=== PATIENT | female | born 1980 | race Caucasian/White ===

== ENCOUNTER → 2017-09-29 18:11 | Outpatient (CLI) | payer BC, SELFPAY ==
[2017-10-01 14:19] LABS: H. pylori Breath Test Positive (Negative)
== END ==
PROVIDERS: PCP Nurse Practitioner Family; Visit Provider Nurse Practitioner Family
DX: R10.9 Unspecified abdominal pain (principal)
CPT/HCPCS: 83013

== ENCOUNTER → 2017-11-10 18:50 | Outpatient (REF) | payer BC, SELFPAY ==
[2017-11-10 19:46] LABS: Basophils % 0.4 % (0.1-2.0); Eosinophils # 0.2 K/mm3 (0.0-0.4); Eosinophils % 2.2 % (0.1-12.0); Hematocrit 40.1 % (37.0-47.0); Lymphocytes # 1.9 K/mm3 (0.7-4.5); Lymphocytes % 24.6 K/mm3 (10-50); Mean Corpuscular HGB Conc 32.5 g/dL (31.8-35.4); Mean Corpuscular Hemoglobin 32.2 pg (27.0-31.2); Monocytes # 0.3 K/mm3 (0.1-1.0); Monocytes % 4.5 % (1.7-9.3); Neutrophils # 5.2 K/mm3 (1.8-7.8); Neutrophils % 68.3 % (37.0-80.0); Platelet Count 225 K/mm3 (142-424); Red Blood Count 4.05 M/mm3 (4.20-5.40); Red Cell Distribution Width 12.5 % (11.5-17.5); White Blood Count 7.7 K/mm3 (4.8-10.8)
[2017-11-10 22:04] LABS: Alanine Aminotransferase 32 U/L (12-78); Albumin Level 4.1 gm/dL (3.4-5.0); Albumin/Globulin Ratio 1.4 (1.1-1.8); Alkaline Phosphatase 56 U/L (46-116); Aspartate Amino Transferase 16 U/L (15-37); Bilirubin,Total 0.2 mg/dL (0.2-1.0); Blood Urea Nitrogen 11 mg/dL (7-18); Calcium 8.9 mg/dL (8.5-10.1); Carbon Dioxide 28 mmol/L (21.0-32.0); Chloride 104 mmol/L (98-107); Creatinine,Serum 0.93 mg/dL (0.55-1.02); Estimated Glomerular Filt Rate 67 ml/min (>60); Free Thyroxine Index 2.6 ug/dL (5.93-13.13); GFR (African American) 82 ML/MIN (>60); Globulin 2.9 gm/dl (1.3-3.2); Glucose 87 mg/dL (74-106); Sodium 142 mmol/L (136-145); T4 (Thyroxine) 7.2 ug/dl (4.7-13.3); Thyroid Stimulating Hormone 2.18 uIU/ml (0.358-3.740); Triiodothryronine (T3) Uptake 36 % (31-39)
== END ==
LOC: LAB 18:50
PROVIDERS: Visit Provider Nurse Practitioner Family
DX: E07.9 Disorder of thyroid, unspecified (principal); R10.13 Epigastric pain
CPT/HCPCS: 80053; 84436; 84443; 84479; 85025

== ENCOUNTER → 2017-11-22 09:53 | Outpatient (POV) | payer BC, SELFPAY | PROVIDERS: Visit Provider Nurse Practitioner Acute Care | DX: Z00.00 Encounter for general adult medical examination without abnormal findings (principal) ==

== ENCOUNTER → 2018-12-25 12:20 | Outpatient (CLI) | payer MEDICAID, SELFPAY ==
[2018-12-25 13:17] LABS: Basophils % 0.3 % (0.1-2.0); Eosinophils # 0.1 K/mm3 (0.0-0.4); Eosinophils % 1.4 % (0.1-12.0); Hematocrit 38.1 % (37.0-47.0); Lymphocytes # 1.7 K/mm3 (0.7-4.5); Lymphocytes % 17.7 % (10-50); Mean Corpuscular HGB Conc 34.2 g/dL (31.8-35.4); Mean Corpuscular Hemoglobin 32.4 pg (27.0-31.2); Mean Corpuscular Volume 94.7 fl (81-99); Mean Platelet Volume 7.8 fl (7.4-10.4); Monocytes # 0.5 K/mm3 (0.1-1.0); Monocytes % 5.4 % (1.7-9.3); Neutrophils # 7.1 K/mm3 (1.8-7.8); Neutrophils % 75.3 % (37.0-80.0); Platelet Count 229 K/mm3 (142-424); Red Blood Count 4.03 M/mm3 (4.20-5.40); Red Cell Distribution Width 12.7 % (11.5-17.5); White Blood Count 9.4 K/mm3 (4.8-10.8)
[2018-12-25 14:25] LABS: Alanine Aminotransferase 31 U/L (12-78); Albumin Level 3.7 gm/dL (3.4-5.0); Albumin/Globulin Ratio 1.2 (1.1-1.8); Alkaline Phosphatase 63 U/L (46-116); Aspartate Amino Transferase 11 U/L (15-37); Bilirubin,Total 0.8 mg/dL (0.2-1.0); Blood Urea Nitrogen 9 mg/dL (7-18); Calcium 8.6 mg/dL (8.5-10.1); Carbon Dioxide 26 mmol/L (21.0-32.0); Chloride 105 mmol/L (98-107); Chol/HDL Ratio 5.3 (1-3.5); Cholesterol 205 mg/dL (140-200); Creatinine,Serum 0.91 mg/dL (0.55-1.02); Estimated Glomerular Filt Rate 69 ml/min (>60); GFR (African American) 83 ML/MIN (>60); Globulin 3.1 gm/dl (1.3-3.2); Glucose 94 mg/dL (74-106); HDL Cholesterol 39 mg/dL (29-89); LDL Cholesterol 147 mg/dL (0-130); Sodium 139 mmol/L (136-145); T4 (Thyroxine) 8.8 ug/dl (4.7-13.3); Thyroid Stimulating Hormone 0.76 uIU/ml (0.358-3.740); Total Protein,Serum 6.8 gm/dL (6.4-8.2); Triglycerides 97 mg/dL (30-200); VLDL Cholesterol 19 mg/dL (0-40)
[2018-12-26 15:03] LABS: Vitamin D 25 Hydroxy 35.3 ng/mL (30.0-100.0)
== END ==
PROVIDERS: PCP Nurse Practitioner Family; Visit Provider Nurse Practitioner Family
DX: E66.09 Other obesity due to excess calories (principal); Z68.41 Body mass index [BMI] 40.0-44.9, adult
CPT/HCPCS: 36415; 80053; 80061; 82652; 84436; 84443; 85025

== ENCOUNTER → 2019-01-26 13:45 | Outpatient (CLI) | payer MEDICAID, SELFPAY ==
--- NOTE | 2019-01-26 13:48 | XR_ITS ---
XR wrist LT min 3V HISTORY pain ITS.REASON: 3 views ORDERING PHYSICIAN: Heena Partida MD PATIENT AGE: 38 years Comparison: None FINDINGS: No fracture or dislocation. No lytic or blastic change. There is normal mineralization.. The joint spaces are well-preserved. No significant degenerative/arthritic changes. No erosive changes evident.. IMPRESSION: Negative wrist
--- NOTE | 2019-01-26 13:48 | XR_ITS ---
XR wrist RT min 3V HISTORY right wrist pain ITS.REASON: 3 views ORDERING PHYSICIAN: Heena Partida MD PATIENT AGE: 38 years Comparison: None FINDINGS: No fracture or dislocation. No lytic or blastic change. There is normal mineralization.. The joint spaces are well-preserved. No significant degenerative/arthritic changes. No erosive changes evident.. IMPRESSION: Negative wrist
== END ==
PROVIDERS: PCP Emergency Medicine; Visit Provider Orthopaedic Surgery
DX: M25.531 Pain in right wrist (principal); M25.532 Pain in left wrist
CPT/HCPCS: 73110

== ENCOUNTER 2019-01-26 14:58 | Outpatient (RCR) | payer MEDICAID, SELFPAY | END 2019-01-26 15:00 | disposition home or self-care (01) | LOC: OT 14:58 | PROVIDERS: Visit Provider Orthopaedic Surgery | DX: G56.03 Carpal tunnel syndrome, bilateral upper limbs (principal) ==

== ENCOUNTER 2019-12-09 15:51 | Emergency (ER) | payer MEDICAID, SELFPAY ==
[2019-12-09 16:06] VITALS: BP 127/55; PULSE 54; RESP 20; TEMP 36.7; O2SAT 98; BMI 42.5
--- NOTE | 2019-12-09 16:26 | HMH.EDUTC ---
[facility] Disposition Clinical Impression: Cellulitis Qualifiers: Site of cellulitis: trunk Site of cellulitis of trunk: abdominal wall Qualified Code(s): L03.311 - Cellulitis of abdominal wall Disposition: Home, Self-Care Condition on Discharge: Good Instructions: Cellulitis Additional Instructions: Apply warm wet compresses to the affected sites three or four times per day for 15 minutes as tolerated. Watch the site for worsening redness or swelling. Take the antibiotics as directed. Follow up with your regular doctor. GO TO THE ER FOR ANY WORSENING SYMPTOMS OR CONCERNS Prescriptions: Sulfamethoxazole/Trimethoprim [Bactrim DS tablet] 1 each PO BID 10 Days #20 tab Transmission Status: Received by [email or web address] [id number] cephALEXin [Keflex 500mg Cap] 500 mg PO Q6H 10 Days #40 cap Transmission Status: Received by [email or web address] # [id number] Referrals: Jerry Mcghee MD [Primary Care Provider] - Time of Disposition: 16:36 Medical Decision Making - Medical Records Medical records reviewed: No: I reviewed the patient's medical records. - Ian Inquiry Pt receiving controlled substance: No Vital Signs: 12/09/19 16:06 12/09/19 16:31 Temperature 98.1 F 98.1 F Temperature Source Oral Pulse Rate 54 L Pulse Rate [Right Brachial] 54 L Respiratory Rate 20 20 Blood Pressure 127/55 L Blood Pressure [Right Arm] 127/55 L Blood Pressure Mean [Right Arm] 79 Blood Pressure Source [Right Arm] Automatic Cuff Blood Pressure Position [Right Arm] Sitting 02 Sat by Pulse Oximetry 98 Oxygen Delivery Method Room Air Orders (Tests/Meds): ED MEDICATIONS Discontinued Medications Generic Name Dose Route Start Last Admin Trade Name Freq PRN Reason Stop Dose Admin Ceftriaxone Sodium 1 gm 12/09/19 16:12 12/09/19 16:24 Rocephin 1gm Vial IM 12/09/19 16:13 1 gm ONCE ONE Administration Protocol Lidocaine HCl 0 ml 12/09/19 16:12 12/09/19 16:24 Lidocaine 1% 10ml Mdv IM 12/09/19 16:13 2.1 ml ONCE ONE Administration ORDERS Category Date Time Status Wound Culture and Gram Stain Stat Micro 12/09/19 16:10 Results [facility] HPI - General Stated complaint: possible spider bite Time Seen by Provider: 12/09/19 16:26 Mode of Arrival: Ambulatory Source of Information: Patient Limitations: No Limitations Description of Symptoms (Recalled from Triage Doc. by RN): POSSIBLE BITE TO ABDOMEN; REDNESS, WARMTH AND DRAINAGE NOTED HEENT Symptoms (Recalled from RN notes): No Resp Symptoms (Recalled from RN notes): No Skin Symptoms (Recalled from RN notes): Yes MS Symptoms (Recalled from RN notes): No Functional Status (Recalled from RN notes): WNL - History of Present Illness Provider Complaint: She c/o having a sore on her lower abdomen that is draining. She states that she first noticed it 2 days ago. Since then it has been getting more red around it and more swollen. She denies any fever or chills. - Related Data Previous Rx's Medication Instructions Recorded levothyroxine 88 mcg tablet 88 mcg PO QDAY #30 tab 06/15/19 Sulfamethoxazole/Trimethoprim 1 each PO BID 10 Days #20 tab 12/09/19 [Bactrim DS tablet] cephALEXin [Keflex 500mg Cap] 500 mg PO Q6H 10 Days #40 cap 12/09/19 Allergies Allergy/AdvReac Type Severity Reaction Status Date / Time phenazopyridine Allergy Unknown UNKNOWN Verified 05/25/19 13:02 [From Pyridium] - Worker's Comp Is this a Worker's Comp case?: No [facility] History - Hepatitis A Screen Drug use history?: No High risk sexual behaviors?: No History of sexually transmitted infection?: No Currently employed?: No Childcare worker?: No Do you have indoor plumbing?: Yes Do you have electricity?: Yes Attestation statement:: This patient has been screened for Hepatitis A risk factors. I have reviewed the patient's past medical history: Yes Medical History: Reports:: Gastroesophageal Reflux Disease(GERD) Denies:: Cancer, Diabetes Mellitus
[2019-12-09 16:31] VITALS: BP 127/55; PULSE 54; RESP 20; TEMP 36.7; O2SAT 98
--- NOTE | 2019-12-12 09:51 | PC.NURSE ---
LAB CALLED WITH CRITICAL LAB RESULT FROM ABDOMINAL SWAB OF DRAINAGE. POSITIVE FOR MRSA. PATIENT ON APPROPRIATE MEDICATION PER DA ORDAZ APRN.
== END 2019-12-09 16:35 | disposition home or self-care (01) ==
PROVIDERS: Emergency Provider Nurse Practitioner Family; PCP Emergency Medicine
DX: L03.311 Cellulitis of abdominal wall (principal); K21.9 Gastro-esophageal reflux disease without esophagitis; E03.9 Hypothyroidism, unspecified; F17.210 Nicotine dependence, cigarettes, uncomplicated; Z79.899 Other long term (current) drug therapy
CPT/HCPCS: 87070; 87186; 87205; 96372; 99202

== ENCOUNTER → 2020-05-17 14:20 | Outpatient (CLI) | payer MEDICAID, SELFPAY ==
--- NOTE | 2020-05-17 14:30 | XR_ITS ---
PROCEDURE: XR KNEE LT 4V CLINICAL INDICATION: knee pain COMPARISON: CR [id number] KNEE-4 OR 5 VIEWS-LT from 10/28/2016 CR [id number] KNEE-4 OR 5 VIEWS-RT from 10/28/2016 FINDINGS: There are tricompartmental osteoarthritic changes which are mild to moderate in nature. No acute fracture or dislocation. No lytic or blastic change. There is a small suprapatellar effusion suspected. There is some cortical thickening/hyperostosis involving the articular surface of the lateral femoral condyle. IMPRESSION: Mild to moderate osteoarthritic changes with small suprapatellar effusion Dictated by: Javier Mayer MD 05/17/2020 15:20 Javier Mayer MD in [place] 05/17/2020 15:20
--- NOTE | 2020-05-17 14:30 | XR_ITS ---
PROCEDURE: XR KNEE RT 4V CLINICAL INDICATION: knee pain COMPARISON: CR [id number] KNEE-4 OR 5 VIEWS-LT from 10/28/2016 CR [id number] KNEE-4 OR 5 VIEWS-RT from 10/28/2016 FINDINGS: There are moderate osteoarthritic changes of the lateral compartment with mild osteoarthritis of the medial compartment and moderate osteoarthritis of the patellofemoral joint. No acute fracture or dislocation.. Osteophyte developing along the lateral femoral condyle since the previous exam Small suprapatellar effusion noted. Other findings:None. IMPRESSION: Moderate osteoarthritis of the right knee which is slightly worse Dictated by: Javier Mayer MD 05/17/2020 15:26 Javier Mayer MD in [place] 05/17/2020 15:26
== END ==
PROVIDERS: PCP Emergency Medicine; Visit Provider Orthopaedic Surgery
DX: M25.561 Pain in right knee (principal); M25.562 Pain in left knee
CPT/HCPCS: 73564

== ENCOUNTER → 2020-09-28 07:48 | Outpatient (CLI) | payer MEDICAID, SELFPAY ==
[2020-09-28 11:04] LABS: Coronavirus 19 IgG Antibody Negative (Negative); Coronavirus 19 IgM Antibody Negative (Negative)
== END ==
PROVIDERS: Visit Provider Nurse Practitioner Family
DX: Z01.812 Encounter for preprocedural laboratory examination (principal); Z20.822 Contact with and (suspected) exposure to COVID-19
CPT/HCPCS: 36415; 86328

== ENCOUNTER → 2020-09-30 19:44 | Outpatient (CLI) | payer MEDICAID, SELFPAY | PROVIDERS: PCP Emergency Medicine; Visit Provider Nurse Practitioner Family | DX: G47.33 Obstructive sleep apnea (adult) (pediatric) (principal); R40.0 Somnolence; R06.83 Snoring; E66.9 Obesity, unspecified | CPT/HCPCS: 95810 ==

== ENCOUNTER → 2021-03-14 12:41 | Outpatient (CLI) | payer MEDICAID, SELFPAY ==
--- NOTE | 2021-03-14 12:45 | MM_ITS ---
PROCEDURE INFORMATION: Exam: MG Screening 3D Mammography Exam date and time: 03/14/2021 12:45 PM Age: 40 years old Clinical indication: Screening mammogram TECHNIQUE: Imaging protocol: Screening tomosynthesis and 2D mammography including computer-aided detection (CAD) when performed. COMPARISON: No relevant prior studies available. FINDINGS: MAMMOGRAPHY: Breast composition: There are scattered areas of fibroglandular density. Mass: None. Architectural distortion: No new or suspicious architectural distortion. Calcifications: See Implants finding. Asymmetric density: No new or suspicious asymmetric density is present Skin thickening: None. Axillary adenopathy: None. Implants: Retroglandular augmentation implants are present. There are dense capsular calcifications. IMPRESSION: No mammographic evidence of malignancy. Recommend annual screening mammography unless otherwise clinically indicated. ASSESSMENT: BI-RADS category 2: Benign
== END ==
PROVIDERS: PCP Emergency Medicine; Visit Provider Obstetrics & Gynecology
DX: Z12.31 Encounter for screening mammogram for malignant neoplasm of breast (principal)
CPT/HCPCS: 77063; 77067

== ENCOUNTER → 2021-03-19 11:45 | Outpatient (CLI) | payer MEDICAID, SELFPAY | PROVIDERS: PCP Emergency Medicine; Visit Provider Obstetrics & Gynecology | DX: Z12.31 Encounter for screening mammogram for malignant neoplasm of breast (principal) ==

== ENCOUNTER 2021-06-10 10:28 | Emergency (ER) | payer BC, MEDICAID, SELFPAY ==
[2021-06-10 11:57] VITALS: BP 114/46; PULSE 71; RESP 18; TEMP 37; O2SAT 98; BMI 36.6
--- NOTE | 2021-06-10 12:11 | HMH.EDUTC ---
[facility] [place] Disposition Clinical Impression: Muscle spasm Disposition: Home, Self-Care Condition on Discharge: Good Instructions: Cyclobenzaprine, DI for Muscle Spasm Additional Instructions: *Ibuprofen randolph 6 hours with meal as needed for pain/inflammation *Not additional anti-inflammatory like motrin, aleve, advil with the above amount of ibuprofen. You can still take Tylenol every 4 hours as needed if you need something else for pain *Ice 20 minutes every 2 hours for the first 48 hours after the initial injury followed by moist heat every 20 minutes 3-4 times a day to affected area *Muscle relaxer every 8 hours as needed for muscle spasms but remember, it WILL cause drowsiness You cannot take it and drive, operate machinery or care for small children. *Keep this area active, no movement leads to more stiffness, However take it easy and avoid heavy lifting pushing or pulling *Follow up with you family doctor if no improvement for further treatment Over the counter Muscle Rubs may help with pain and discomfort Prescriptions: Cyclobenzaprine HCl [Flexeril 10mg tablet] 10 mg PO TID PRN #15 tab PRN Reason: Muscle Spasm Transmission Status: Received by [id number] Referrals: Jerry Mcghee MD [Primary Care Provider] - As needed Time of Disposition: 12:24 Medical Decision Making - Ian Inquiry Pt receiving controlled substance: No Ian was queried for this patient: No Vital Signs: 06/10/21 11:57 06/10/21 12:26 Temperature 98.6 F 98.6 F Temperature Source Oral Pulse Rate 71 Pulse Rate [Right Radial] 71 Respiratory Rate 18 18 Blood Pressure 114/46 L Blood Pressure [Right Arm] 114/46 L Blood Pressure Mean [Right Arm] 68 Blood Pressure Source [Right Arm] Automatic Cuff Blood Pressure Position [Right Arm] Sitting 02 Sat by Pulse Oximetry 98 Orders (Tests/Meds): ED MEDICATIONS Discontinued Medications Generic Name Dose Route Start Last Admin Trade Name Freq PRN Reason Stop Dose Admin Methylprednisolone Sodium Succinate 125 mg 06/10/21 12:19 06/10/21 12:20 Methylprednisolone Sod Succ 125mg Vial IM 06/10/21 12:20 125 mg ONCE ONE Administration [facility] [place] HPI - General Stated complaint: possible pulled muscle in shoulder Time Seen by Provider: 06/10/21 12:11 Mode of Arrival: Ambulatory Source of Information: Patient Limitations: No Limitations Description of Symptoms (Recalled from Triage Doc. by RN): Pt c/o pain in the right shoulder, left side and left back with movement x2 days. No known injury HEENT Symptoms (Recalled from RN notes): No Resp Symptoms (Recalled from RN notes): No Skin Symptoms (Recalled from RN notes): No MS Symptoms (Recalled from RN notes): Yes (pain in rt shoulder, lt side and lt back) Functional Status (Recalled from RN notes): n/a - History of Present Illness Provider Complaint: Patient states that she has been having muscle spasm like pain in her right shoulder area and left back with movement States States that she is unsure if she may have slept wrong or something but hurts when she moves her shoulder and feels tight - Related Data Previous Rx's Medication Instructions Recorded meloxicam 15 mg tablet 15 mg PO DAILY #30 tab 03/25/21 methylprednisolone 4 mg tablets in See Rx Instructions PO PER PKG DIR 03/25/21 a dose pack #21 tab Cyclobenzaprine HCl [Flexeril 10mg 10 mg PO TID PRN #15 tab 06/10/21 tablet] Allergies Allergy/AdvReac Type Severity Reaction Status Date / Time phenazopyridine Allergy Unknown UNKNOWN Verified 03/25/21 08:33 [From Pyridium] - Worker's Comp Is this a Worker's Comp case?: No [facility] History - Hepatitis A Screen Drug use history?: No High risk sexual behaviors?: No History of sexually transmitted infection?: No Currently employed?: No Childcare worker?: No Do you have indoor plumbing?: Yes Do you have electricity?: Yes Attestation statement:: This patient has been screened for Hepatitis A ris
[2021-06-10 12:26] VITALS: BP 114/46; PULSE 71; RESP 18; TEMP 37; O2SAT 98
== END 2021-06-10 12:26 | disposition home or self-care (01) ==
PROVIDERS: Emergency Provider Nurse Practitioner; PCP Emergency Medicine
DX: M62.838 Other muscle spasm (principal)
CPT/HCPCS: 99202; G0463

== ENCOUNTER 2021-08-14 18:27 | Emergency (ER) | payer BC, MEDICAID, SELFPAY ==
[2021-08-14 19:07] VITALS: BP 121/61; PULSE 89; RESP 18; TEMP 38.6; O2SAT 98; BMI 31.9
--- NOTE | 2021-08-14 19:22 | HMH.EDUTC ---
[facility] [place] Disposition Clinical Impression: Abdominal pain Qualifiers: Abdominal location: unspecified location Qualified Code(s): R10.9 - Unspecified abdominal pain Disposition: Still a Patient Condition on Discharge: Good Referrals: Jerry Mcghee MD [Primary Care Provider] - Time of Disposition: 19:57 Medical Decision Making - Ian Inquiry Pt receiving controlled substance: No Ian was queried for this patient: No Vital Signs: 08/14/21 19:07 08/14/21 19:56 Temperature 101.4 F H 101.4 F H Temperature Source Oral Oral Pulse Rate [Right Radial] 89 89 Respiratory Rate 18 17 Blood Pressure [Right Arm] 121/61 127/61 Blood Pressure Mean [Right Arm] 81 83 Blood Pressure Source [Right Arm] Automatic Cuff Automatic Cuff Blood Pressure Position [Right Arm] Sitting Sitting 02 Sat by Pulse Oximetry 98 98 Oxygen Delivery Method Room Air Room Air - Lab Data Lab results reviewed: Yes: I reviewed the patient's lab results. Lab Results 08/14/21 19:24: Urine Color Dark yellow, Urine Appearance Clear, Urine pH 6.5, Ur Specific [place] 1.015, Urine Protein 1+, Urine Glucose (UA) Negative, Urine Ketones Negative, Urine Blood Negative, Urine Nitrate Negative, Urine Bilirubin Negative, Urine Urobilinogen 1, Ur Leukocyte Esterase Trace 08/14/21 19:43: Strep Scn [facility] Negative 08/14/21 19:46: Influenza Type A Ag Negative, Influenza Type B Ag Negative Orders (Tests/Meds): ED MEDICATIONS Generic Name Dose Route Start Last Admin Trade Name Freq PRN Reason Stop Dose Admin Sodium Chloride 1,000 mls @ 999 mls/hr 08/14/21 20:15 08/14/21 20:11 Sod Chlor 0.9% 1000ml Bag IV 08/14/21 21:15 999 mls/hr .Q1H1M MARIEL Administration Discontinued Medications Generic Name Dose Route Start Last Admin Trade Name Freq PRN Reason Stop Dose Admin Ketorolac Tromethamine 30 mg 08/14/21 20:04 08/14/21 20:11 Ketorolac 30mg/Ml Vial IV 08/14/21 20:05 30 mg ONCE ONE Administration Ondansetron HCl 4 mg 08/14/21 20:08 08/14/21 20:11 Ondansetron 4mg/2ml Vial IV 08/14/21 20:09 4 mg ONCE ONE Administration ORDERS Category Date Time Status CT abdomen pelvis w con Stat Cat Scan 08/14/21 20:02 Ordered Amylase Stat Lab 08/14/21 20:02 Ordered Complete Blood Count Auto Diff Stat Lab 08/14/21 20:02 Ordered Comprehensive Metabolic Panel Stat Lab 08/14/21 20:02 Ordered Lactic Acid Stat Lab 08/14/21 20:04 Ordered Lipase Stat Lab 08/14/21 20:02 Ordered Procalcitonin Stat Lab 08/14/21 20:04 Ordered Rapid PCR Covid and Flu A/B Stat Lab 08/14/21 19:22 Received Blood Culture Stat Micro 08/14/21 20:04 Ordered Strep Screen Confirmation Stat Micro 08/14/21 19:43 Received Urine Culture Stat Micro 08/14/21 19:30 Received Medical Decision Narrative: Patient state that she was seen at [facility] last night and dx with UTI since then she has continued to get worse having body aches, chills, low back pain, lower abdominal pain and fever States that this evening she was feeling worse and felt weak States that she just feels bad due to symptoms and recent dx discussed with patient and recommended transfer to the ED for further work up and evaluation and testing patient agreed to transfer Called ED spoke with Rica WHITTEN and patient was moved to room 9 [facility] [place] HPI - General Stated complaint: uti, body painHA, Ears, Dizzy Time Seen by Provider: 08/14/21 19:22 Mode of Arrival: Ambulatory Source of Information: Patient Limitations: No Limitations Description of Symptoms (Recalled from Triage Doc. by RN): Pt stated that she was seen at [facility] for a UTI, and now her body hurts all over, she cannot eat or drink, and her ears hurt. HEENT Symptoms (Recalled from RN notes): Yes Resp Symptoms (Recalled from RN notes): No Skin Symptoms (Recalled from RN notes): No MS Symptoms (Recalled from RN notes): No Functional Status (Recalled from RN notes): n/a - History of Present Illness Provider Compl
[2021-08-14 19:33] LABS: Apearance,Urine Clear (Clear); Color,Urine Dark Yellow (Yellow); PH,Urine 6.5 (5.0-8.5); Specific Gravity, Urine 1.015 (1.005-1.030)
[2021-08-14 19:34] LABS: Bilirubin,Urine Negative (Negative); Blood, Urine Negative (Negative); Glucose,Urine (UA) Negative (Negative); Ketones,Urine Negative (Negative); Protein,Urine 1+ (Negative); UTC Leukocyte Esterase,Urine Trace (Negative); UTC Nitrate,Urine Negative (Negative); Urobilinogen,Urine 1 EU/dl (0.2)
[2021-08-14 19:51] LABS: UTC Influenza A Antigen Negative (Negative); UTC Influenza B Antigen Negative (Negative)
[2021-08-14 19:52] LABS: UTC Strep Screen (Rapid) Negative (Negative)
[2021-08-14 19:56] VITALS: BP 127/61; PULSE 89; RESP 17; TEMP 38.6; O2SAT 98; BMI 31.9
[2021-08-14 19:58] LABS: Coronavirus 19, PCR Not Detected (NotDetected); Influenza A, PCR Not Detected (NotDetected); Influenza B, PCR Not Detected (NotDetected)
--- NOTE | 2021-08-14 20:02 | CT_ITS ---
PROCEDURE INFORMATION: Exam: CT Abdomen And Pelvis With Contrast Exam date and time: 08/14/2021 8:02 PM Age: 40 years old Clinical indication: Abdominal pain; Prior surgery; Surgery type: C section; Additional info: Low abd pain TECHNIQUE: Imaging protocol: Computed tomography of the abdomen and pelvis with contrast. Radiation optimization: All CT scans at this facility use at least one of these dose optimization techniques: automated exposure control; mA and/or kV adjustment per patient size (includes targeted exams where dose is matched to clinical indication); or iterative reconstruction. Contrast material: ISOVUE; Contrast volume: 75 ml; Contrast route: IV; COMPARISON: No relevant prior studies available. FINDINGS: Lungs: No mass/infiltrate at either lung base. No pleural effusion. Liver: The liver is normal in size and attenuation. No intrahepatic biliary dilitation. Gallbladder and bile ducts: Normal. No calcified stones. No ductal dilation. Gallbladder wall thickness is normal. Pancreas: Normal. No ductal dilation. Spleen: Normal. No splenomegaly. Adrenal glands: Normal. No mass. Kidneys and ureters: Mild infiltration of perinephric fat within the superior aspect of the left perinephric space. The possibility of underlying infection is not excluded. There are 2 low-attenuation regions identified within the superior aspect of the left kidney. One measures 1.5 cm in size. 2.4 cm in size. These may represent cysts. Correlation with ultrasound of the retroperitoneum with attention to the kidneys would be helpful. The right kidney is unremarkable. There is no evidence of hydronephrosis. Stomach and bowel: Unremarkable. No obstruction. No mucosal thickening. Small bowel mesentery is normal. Appendix: The appendix is poorly visualized on this examination. There is no evidence of acute inflammatory process within the right lower quadrant. Intraperitoneal space: Unremarkable. No free air. No significant fluid collection. Vasculature: Arterial atheromatous calcifications are noted. No abdominal aortic aneurysm. There are calcified phleboliths within the pelvis. Lymph nodes: Unremarkable. No enlarged lymph nodes. Urinary bladder: Unremarkable as visualized. Reproductive: An intrauterine device is in place. Otherwise unremarkable. Bones/joints: There are degenerative changes noted within the lumbar spine. There are degenerative changes within the sacroiliac joints. No acute fracture. Soft tissues: Small umbilical hernia which contains fat. IMPRESSION: 1. Subtle infiltration of fat within the superior left perinephric space. The possibility of underlying infection including pyelonephritis is considered. There are 2 low-attenuation well-circumscribed masses within the superior aspect of the left kidney, probably representing cysts, however this should be correlated with ultrasound of the retroperitoneum with attention to the kidneys. 2. An intrauterine device is in place. 3. Small umbilical hernia which contains fat.
--- NOTE | 2021-08-14 20:04 | PC.NURSE ---
Gave report to Rica LOPEZ RN.
[2021-08-14 20:36] LABS: Basophils # 0.1 K/mm3 (0-0.2); Basophils % 0.4 % (0.1-2.0); Eosinophils % 0.1 % (0.1-12.0); Hematocrit 35.2 % (37.0-47.0); Hemoglobin 12.3 g/dL (12.2-16.2); Lymphocytes # 1.5 K/mm3 (0.7-4.5); Lymphocytes % 9.2 % (10-50); Mean Corpuscular HGB Conc 34.8 g/dL (31.8-35.4); Mean Corpuscular Hemoglobin 32.7 pg (27.0-31.2); Mean Corpuscular Volume 93.9 fl (81-99); Mean Platelet Volume 8.6 fl (7.4-10.4); Monocytes # 0.8 K/mm3 (0.1-1.0); Monocytes % 5.3 % (1.7-9.3); Neutrophils # 13.5 K/mm3 (1.8-7.8); Platelet Count 206 K/mm3 (142-424); Red Blood Count 3.75 M/mm3 (4.20-5.40); Red Cell Distribution Width 12.6 % (11.5-17.5); White Blood Count 15.9 K/mm3 (4.8-10.8)
[2021-08-14 20:51] LABS: MANUAL DIFFERENTIAL MANUAL DIFFERENTIAL (MANUAL DIFF)
[2021-08-14 20:56] LABS: Alanine Aminotransferase 39 U/L (12-78); Albumin Level 3.9 g/dl (3.5-5.0); Albumin/Globulin Ratio 1.4 (1.1-1.8); Alkaline Phosphatase 75 U/L (38-126); Amylase 42 U/L (30-110); Aspartate Amino Transferase 35 U/L (14-36); Bilirubin,Total 0.9 mg/dl (0.2-1.3); Blood Urea Nitrogen 9 mg/dl (7-17); Calcium 8.6 mg/dl (8.4-10.2); Carbon Dioxide 29 mmol/L (22.0-30.0); Creatinine Clearance Estimated 81 mL/min (50-200); Estimated Glomerular Filt Rate 45 ml/min (>60); GFR (African American) 55 ML/MIN (>60); Globulin 2.8 g/dL (1.3-3.2); Glucose 95 mg/dl (74-100); Lipase 30 U/L (23-300); Potassium 3.4 mmoL/L (3.5-5.1); Sodium 131 mmol/L (136-145); Total Protein,Serum 6.7 g/dl (6.3-8.2)
[2021-08-14 20:57] LABS: Lactic Acid 0.9 mmol/L (0.7-2.1)
[2021-08-14 21:13] LABS: Procalcitonin 0.292 ng/mL (0.0-2.0)
[2021-08-14 21:23] LABS: Anion Gap 9.4 mEq/L (5-15); Chloride 96 mmol/L (98-107)
[2021-08-14 22:21] LABS: Anisocytosis 1+; Lymphocytes % 11 % (10-50); Monocytes % 5 % (2-9); Neutrophils % 84 % (42-76); Platelet Estimate P; Total Cells Counted 100
--- NOTE | 2021-08-14 23:21 | HMH.EDNVD ---
ED Disposition Clinical Impression: Pyelonephritis, SIRS (systemic inflammatory response syndrome) Abdominal pain Qualifiers: Abdominal location: unspecified location Qualified Code(s): R10.9 - Unspecified abdominal pain Disposition: Home, Self-Care Condition on Discharge: Good Instructions: DI for Fever (Symptom) -- Adult Additional Instructions: fluids and use meds and see pcp for follow up Prescriptions: levoFLOXacin [Levaquin 500mg tab] 500 mg PO DAILY #7 tab Transmission Status: [id number] ondansetron HCL [Zofran 4mg Tab] 4 mg PO TID #21 tab Transmission Status: Pending to [id number] Referrals: Jerry Mcghee MD [Primary Care Provider] - - Critical Care Critical Care Time: No Attestation: On 08/14/21, the high probability of a clinically significant, sudden or life threatening deterioration of the following system(s) required my full and direct attention, intervention and personal management. The time I documented below is in addition to time spent performing reported procedures but includes the following listed in this critical care notation. Medical Decision Making - Medical Records Medical records reviewed: Yes: I reviewed the patient's medical records. - Ian Inquiry Pt receiving controlled substance: No Vital Signs: 08/14/21 19:07 08/14/21 19:56 Temperature 101.4 F H 101.4 F H Temperature Source Oral Oral Pulse Rate [Right Radial] 89 89 Respiratory Rate 18 17 Blood Pressure [Right Arm] 121/61 127/61 Blood Pressure Mean [Right Arm] 81 83 Blood Pressure Source [Right Arm] Automatic Cuff Automatic Cuff Blood Pressure Position [Right Arm] Sitting Sitting 02 Sat by Pulse Oximetry 98 98 Oxygen Delivery Method Room Air Room Air - Lab Data Lab results reviewed: Yes: I reviewed the patient's lab results. Lab Results 08/14/21 19:22: SARS-CoV-2 (PCR) Not detected, Influenza A Untype (PCR) Not detected, Influenza Type B (PCR) Not detected 08/14/21 19:24: Urine Color Dark yellow, Urine Appearance Clear, Urine pH 6.5, Ur Specific [place] 1.015, Urine Protein 1+, Urine Glucose (UA) Negative, Urine Ketones Negative, Urine Blood Negative, Urine Nitrate Negative, Urine Bilirubin Negative, Urine Urobilinogen 1, Ur Leukocyte Esterase Trace 08/14/21 19:43: Strep Scn Rapid Clinic Negative 08/14/21 19:46: Influenza Type A Ag Negative, Influenza Type B Ag Negative 08/14/21 20:07: WBC 15.9 H, RBC 3.75 L, Hgb 12.3, Hct 35.2 L, MCV 93.9, MCH 32.7 H, MCHC 34.8, RDW 12.6, Plt Count 206, MPV 8.6, Neut % (Auto) 85.0 H, Lymph % (Auto) 9.2 L, [place] % (Auto) 5.3, Eos % (Auto) 0.1, Baso % (Auto) 0.4, Neut # (Auto) 13.5 H, Lymph # (Auto) 1.5, [place] # (Auto) 0.8, Eos # (Auto) 0.0, Baso # (Auto) 0.1, Total Counted 100, Neutrophils % (Manual) 84 H, Lymphocytes % (Manual) 11, Monocytes % (Manual) 5, Platelet Estimate P, Anisocytosis 1+ 08/14/21 20:07: Sodium 131 L, Potassium 3.4 L, Chloride 96 L, Carbon Dioxide 29, Anion Gap 9.4, BUN 9, Creatinine 1.30 H, Estimated Creat Clear 81, Estimated GFR 45 L, Est GFR ( Amer) 55 L, Glucose 95, Calcium 8.6, Total Bilirubin 0.9, AST 35, ALT 39, Alkaline Phosphatase 75, Total Protein 6.7, Albumin 3.9, Globulin 2.8, Albumin/Globulin Ratio 1.4, Amylase 42, Lipase 30 08/14/21 20:07: Lactate 0.9 08/14/21 20:07: Procalcitonin 0.292 Result diagrams: 08/14/21 20:07 08/14/21 20:07 Orders (Tests/Meds): ED MEDICATIONS Generic Name Dose Route Start Last Admin Trade Name Freq PRN Reason Stop Dose Admin Sodium Chloride 1,000 mls @ 999 mls/hr 08/14/21 20:15 08/14/21 20:11 Sod Chlor 0.9% 1000ml Bag IV 08/14/21 21:15 999 mls/hr .Q1H1M MARIEL Administration Discontinued Medications Generic Name Dose Route Start Last Admin Trade Name Freq PRN Reason Stop Dose Admin Acetaminophen 1,000 mg 08/14/21 22:57 08/14/21 23:02 Acetaminophen 500mg Tab PO 08/14/21 22:58 1,000 mg ONCE ONE Administration Iopamidol 75 ml 08/14/21 22:16 1
[2021-08-14 23:33] VITALS: BP 124/75; PULSE 72; RESP 16; TEMP 36.8; O2SAT 99
== END 2021-08-14 23:36 | disposition home or self-care (01) ==
LOC: UTC 19:51 → ER 19:52
PROVIDERS: Nurse Practitioner; Emergency Provider Emergency Medicine; PCP Emergency Medicine
DX: N12 Tubulo-interstitial nephritis, not specified as acute or chronic (principal); N30.00 Acute cystitis without hematuria; K21.9 Gastro-esophageal reflux disease without esophagitis; E03.9 Hypothyroidism, unspecified; M62.838 Other muscle spasm; R65.10 Systemic inflammatory response syndrome (SIRS) of non-infectious origin without acute organ dysfunction; F17.210 Nicotine dependence, cigarettes, uncomplicated; Z79.899 Other long term (current) drug therapy
CPT/HCPCS: 74177; 80053; 81003; 82150; 83605; 83690; 84145; 85007; 85025; 87040; 87086; 87804; 87880; 96365; 96375; 99283; C9803; J2405; Q9967; U0003; U0005

== ENCOUNTER 2021-12-10 08:17 | Emergency (ER) | payer MEDICAID, SELFPAY ==
[2021-12-10 08:18] VITALS: BP 127/50; PULSE 67; RESP 18; TEMP 36.7; O2SAT 100; BMI 34.0
[2021-12-10 08:42] LABS: Adenovirus,PCR Not Detected (NotDetected); Bordetella Pertussis Not Detected (NotDetected); Chlamydophila Pneumoniae, PCR Not Detected (NotDetected); Coronavirus 19, PCR Not Detected (NotDetected); Coronavirus 229E Not Detected (NotDetected); Coronavirus NL63 Not Detected (NotDetected); Coronavirus OC43 Not Detected (NotDetected); Coronovirus HKU1,PCR Not Detected (NotDetected); Human Metapneumovirus Not Detected (NotDetected); Influenza A, PCR Not Detected (NotDetected); Influenza AH1, 2009 Not Detected (NotDetected); Influenza AH1, PCR Not Detected (NotDetected); Influenza B, PCR Not Detected (NotDetected); Mycoplasma Pneumoniae, PCR Not Detected (NotDetected); Parainfluenza 1, PCR Not Detected (NotDetected); Parainfluenza 2, PCR Not Detected (NotDetected); Parainfluenza 3, PCR Not Detected (NotDetected); Parainfluenza 4, PCR Not Detected (NotDetected); Respiratory Syncytial Virus Not Detected (NotDetected); Rhinovirus/Enterovirus Not Detected (NotDetected)
--- NOTE | 2021-12-10 08:43 | HMH.EDGENADL ---
ED Disposition Clinical Impression: Viral upper respiratory infection, Influenza A Disposition: Home, Self-Care Condition on Discharge: Good Additional Instructions: Tylenol or ibuprofen for fever or pain. Quarantine yourself until you obtain your upper respiratory panel/COVID-19 test result. You will be called with the result. You may check the results yourself on the [facility] portal. Prescriptions: Oseltamivir Phosphate [Tamiflu 75mg Capsule] 75 mg PO BID #10 cap Transmission Status: Pending to [facility]/pharmacy #[id number] Referrals: Jerry Mcghee MD [Primary Care Provider] - Forms: Work/School Release - Critical Care Critical Care Time: No Attestation: On 12/10/21, the high probability of a clinically significant, sudden or life threatening deterioration of the following system(s) required my full and direct attention, intervention and personal management. The time I documented below is in addition to time spent performing reported procedures but includes the following listed in this critical care notation. Medical Decision Making - Ian Inquiry Pt receiving controlled substance: No Vital Signs: 12/10/21 08:18 12/10/21 09:10 Temperature 98.1 F 98.1 F Temperature Source Oral Pulse Rate 67 Pulse Rate [Left Radial] 67 Respiratory Rate 18 18 Blood Pressure 127/50 L Blood Pressure [Right Arm] 127/50 L Blood Pressure Mean [Right Arm] 75 Blood Pressure Source Automatic Cuff Blood Pressure Source [Right Arm] Automatic Cuff Blood Pressure Position Sitting Blood Pressure Position [Right Arm] Sitting 02 Sat by Pulse Oximetry 100 Oxygen Delivery Method Room Air Room Air - Lab Data Lab Results 12/10/21 08:29: Group A Strep Rapid Negative 12/10/21 08:29: Chlamy pneumoniae PCR Not detected, Adenovirus (PCR) Not detected, B. pertussis DNA (PCR) Not detected, Coronavirus OC43 (PCR) Not detected, Coronavirus HKU1 (PCR) Not detected, Coronavirus 229E (PCR) Not detected, SARS-CoV-2 (PCR) Not detected, Coronavirus NL63 (PCR) Not detected, Human Metapneumovir PCR Not detected, Influenza A (H1) PCR Not detected, Influ A (H1N1/09) PCR Not detected, Influenza A (H3) PCR Detected A, Influenza Type A (PCR) Not detected, Influenza Type B (PCR) Not detected, M. pneumoniae (PCR) Not detected, Parainfluenza 1 (PCR) Not detected, Parainfluenza 2 (PCR) Not detected, Parainfluenza 3 (PCR) Not detected, Parainfluenza 4 (PCR) Not detected, RSV (PCR) Not detected, Entero/Rhino (PCR) Not detected Orders (Tests/Meds): ORDERS Category Date Time Status Strep Screen Confirmation Stat Micro 12/10/21 08:29 Received Medical Decision Narrative: 10:30 AM: Respiratory panel shows influenza A. Patient notified. Prescription for Tamiflu transmitted. Off work for 1 week. General Adult HPI - General Chief complaint: Upper Respiratory Infection Stated complaint: sore throat, cough, ear pain,headache Time Seen by Provider: 12/10/21 08:35 Mode of Arrival: Ambulatory Limitations: No Limitations Description of Symptoms (Recalled from ER Triage Doc. by RN): c/o cough, runny nose, sore throat and ear pain since yesterday - History of Present Illness HPI narrative: 2-day history of runny nose, both ears hurt, sore throat, cough. No fever. Her 3-year-old child is being seen here for similar symptoms. - Related Data Home Medications Medication Instructions Recorded Confirmed Sulfamethoxazole/Trimethoprim 1 each PO BID 08/14/21 08/14/21 [Sulfamethoxazole-Tmp Ds Tablet] Previous Rx's Medication Instructions Recorded levoFLOXacin [Levaquin 500mg 500 mg PO DAILY #7 tab 08/14/21 tab] ondansetron HCL [Zofran 4mg Tab] 4 mg PO TID #21 tab 08/14/21 Oseltamivir Phosphate [Tamiflu 75 mg PO BID #10 cap 12/10/21 75mg Capsule] Allergies Allergy/AdvReac Type Severity Reaction Status Date / Time phenazopyridine Allergy Unknown UNKNOWN Verified 08/14/21 19:14 [From Pyridium]
[2021-12-10 08:53] LABS: Strep Scrn Group A (Rapid) Negative (Negative)
[2021-12-10 09:10] VITALS: BP 127/50; PULSE 67; RESP 18; TEMP 36.7; O2SAT 100
[2021-12-10 10:20] LABS: Influenza AH3,PCR Detected (NotDetected)
--- NOTE | 2021-12-10 10:21 | PC.NURSE ---
lab called with swab results, spoke with ifeanyi. notified ER
== END 2021-12-10 09:12 | disposition home or self-care (01) ==
PROVIDERS: Emergency Provider Emergency Medicine; PCP Emergency Medicine
DX: J10.1 Influenza due to other identified influenza virus with other respiratory manifestations (principal); K21.9 Gastro-esophageal reflux disease without esophagitis; J06.9 Acute upper respiratory infection, unspecified
CPT/HCPCS: 87430; 87581; 87632; 87798; 99213; C9803; G0463; U0003; U0005

== ENCOUNTER → 2022-03-24 17:22 | Outpatient (CLI) | payer MEDICAID, SELFPAY ==
[2022-03-24 15:21] LABS: Basophils % 0.2 % (0.1-2.0); Eosinophils % 0.1 % (0.1-12.0); Hematocrit 35.7 % (37.0-47.0); Hemoglobin 12.1 g/dL (12.2-16.2); Lymphocytes # 1.8 K/mm3 (0.7-4.5); Lymphocytes % 14.4 % (10-50); Mean Corpuscular HGB Conc 33.9 g/dL (31.8-35.4); Mean Corpuscular Volume 97.3 fl (81-99); Mean Platelet Volume 9.2 fl (7.4-10.4); Monocytes # 0.6 K/mm3 (0.1-1.0); Monocytes % 4.6 % (1.7-9.3); Neutrophils # 9.9 K/mm3 (1.8-7.8); Neutrophils % 80.5 % (37.0-80.0); Platelet Count 191 K/mm3 (142-424); Red Blood Count 3.67 M/mm3 (4.20-5.40); Red Cell Distribution Width 12.8 % (11.5-17.5); White Blood Count 12.3 K/mm3 (4.8-10.8)
[2022-03-24 15:26] LABS: Alanine Aminotransferase 23 U/L (12-78); Albumin Level 4.1 g/dl (3.5-5.0); Albumin/Globulin Ratio 1.6 (1.1-1.8); Alkaline Phosphatase 55 U/L (38-126); Anion Gap 11.3 mEq/L (5-15); Aspartate Amino Transferase 29 U/L (14-36); Bilirubin,Total 0.7 mg/dl (0.2-1.3); Blood Urea Nitrogen 7 mg/dl (7-17); Calcium 9.2 mg/dl (8.4-10.2); Carbon Dioxide 25 mmol/L (22.0-30.0); Chloride 105 mmol/L (98-107); Cholesterol 185 mg/dl (140-200); Estimated Glomerular Filt Rate 79 ml/min (>60); GFR (African American) 95 ML/MIN (>60); Globulin 2.6 g/dL (1.3-3.2); Glucose 96 mg/dl (74-100); HDL Cholesterol 46 mg/dl (40-60); Potassium 3.3 mmoL/L (3.5-5.1); Sodium 138 mmol/L (136-145); Total Protein,Serum 6.7 g/dl (6.3-8.2); Triglycerides 83 mg/dl (30-150); VLDL Cholesterol 17 mg/dL (0-40)
[2022-03-24 15:39] LABS: Direct LDL Cholesterol 116.21 mg/dL (100-129)
[2022-03-24 15:44] LABS: T4 (Thyroxine) 8.9 ug/dl (5.53-11.0)
[2022-03-24 15:45] LABS: 25-OH Vitamin D, Total 40.5 ng/mL (30-100)
[2022-03-24 15:58] LABS: Thyroid Stimulating Hormone 3.94 uIU/mL (0.465-4.68)
[2022-03-26 22:20] LABS: HIV Screen 4th Generation wRfx Non Reactive; Hep A Ab, IgM Negative; Hepatitis B Core Antibody IgM Negative; Hepatitis B Surface Antigen Negative; Hepatitis C Antibody 0.2
== END ==
PROVIDERS: PCP Nurse Practitioner Family; Visit Provider Nurse Practitioner Family
DX: I10 Essential (primary) hypertension (principal); R53.83 Other fatigue; E78.5 Hyperlipidemia, unspecified; E03.9 Hypothyroidism, unspecified; K21.9 Gastro-esophageal reflux disease without esophagitis; E66.3 Overweight; Z68.31 Body mass index [BMI] 31.0-31.9, adult; Z11.4 Encounter for screening for human immunodeficiency virus [HIV]
CPT/HCPCS: 80053; 80061; 80074; 82306; 84436; 84443; 85025; 86703; G0432

== ENCOUNTER → 2022-04-02 09:46 | Outpatient (CLI) | payer MEDICAID, SELFPAY | PROVIDERS: PCP Emergency Medicine; Visit Provider Nurse Practitioner | DX: R06.09 Other forms of dyspnea (principal); R07.89 Other chest pain; R55 Syncope and collapse; R00.1 Bradycardia, unspecified; R60.9 Edema, unspecified; R94.31 Abnormal electrocardiogram [ECG] [EKG]; F17.200 Nicotine dependence, unspecified, uncomplicated; E66.9 Obesity, unspecified; Z68.37 Body mass index [BMI] 37.0-37.9, adult | CPT/HCPCS: 93270 ==

== ENCOUNTER → 2022-04-08 09:58 | Outpatient (CLI) | payer MEDICAID, SELFPAY ==
--- NOTE | 2022-04-08 09:59 | CA_ITS ---
APPROVED REPORT EXAM: Comprehensive 2D, Doppler, and color-flow Echocardiogram [employer] Analyst: Claudia Tomlinson RDCS Ht: 5 ft 1 in Wt: 198lbs BSA: 1.88 BP: 133/60 mmHg Indications: BRADYCARDIA,[place] 2D Dimensions LVOT 1.53 cm (M/F) 1.5-2.5 M-Mode Dimensions RVDd 1.34 cm (0.9-2.6) LA Diam 3.23 cm (1.9-4.0) LVDd 5.03 cm (3.5-5.7) Ao Diam 2.89 cm (2.0-3.7) LVDs 3.63 cm (3.5-5.7) IVSd 0.66 cm (0.6-1.1) PWd 0.69 cm (0.6-1.1) EF (Teich) 53.70% FS 27.80% EDV (Teich) 119.90 mL ESV (Teich) 55.50 mL LV Diastology E Decel Time 173.00 (160-240 msec) E/A Ratio 1.3 MED E' 14.80 (< 7 cm/sec) E'/MED E' Ratio 4.84 (>14) LAT E' 12.10 (<10 cm/sec) E/LAT E' Ratio 5.92 (>14) Mitral Valve MV E Max Keegan. 72.00 (40-130 cm/s) MV A Velocity 54.00 (40-130 cm/s) E/A Ratio 1.34 MV Decel. Time 173.00 (160-240 ms) MV PHT 51.00 ms Left Ventricle Left atrium normal size, left ventricle is normal size, there is no concentric left ventricular hypertrophy, estimated ejection fraction 55% with no regional wall motion abnormality, diastolic parameters are within normal range. Right Ventricle Right atrium and right ventricle are normal size and contractility. Aortic Valve Aortic valve is grossly normal there is no aortic stenosis or aortic insufficiency. Mitral Valve Mitral valve grossly normal, there is no mitral stenosis or significant mitral regurgitation. Tricuspid Valve Tricuspid valve grossly normal, there is no significant tricuspid regurgitation. Pulmonic Valve Pulmonic valve is poorly visualized. Great Vessels Aortic root is normal size. Inferior vena cava is normal size with normal inspiratory collapse. Pericardium No significant pericardial effusion. Conclusion 1. Normal left ventricular size preserved left ventricular systolic function, estimated ejection fraction 55% with no regional wall motion abnormality, diastolic parameters are within normal range. 2. No significant pericardial effusion. 3. Inferior vena cava is normal size with normal inspiratory collapse. Electronically signed by : Sascha Dickey MD 04/09/2022 05:49:02
== END ==
PROVIDERS: PCP Emergency Medicine; Visit Provider Physician Assistant
DX: R06.09 Other forms of dyspnea (principal); R07.89 Other chest pain; R55 Syncope and collapse; R00.1 Bradycardia, unspecified; R94.31 Abnormal electrocardiogram [ECG] [EKG]; F17.200 Nicotine dependence, unspecified, uncomplicated; E66.9 Obesity, unspecified; Z68.37 Body mass index [BMI] 37.0-37.9, adult
CPT/HCPCS: 93306

== ENCOUNTER → 2022-04-24 08:55 | Outpatient (CLI) | payer MEDICAID, SELFPAY | PROVIDERS: PCP Emergency Medicine; Visit Provider Nurse Practitioner | DX: R06.81 Apnea, not elsewhere classified (principal); R06.09 Other forms of dyspnea; R07.89 Other chest pain; R55 Syncope and collapse; R40.0 Somnolence; E66.9 Obesity, unspecified; F17.200 Nicotine dependence, unspecified, uncomplicated; Z68.37 Body mass index [BMI] 37.0-37.9, adult | CPT/HCPCS: G0399 ==

== ENCOUNTER 2023-06-30 12:10 | Emergency (ER) | payer MEDICAID, SELFPAY ==
[2023-06-30] VITALS (8 sets, daily range): BP systolic 98–115; BP diastolic 42–69; PULSE 50–68; RESP 16; TEMP 36.7–36.9; O2SAT 98–100; BMI 37.8
--- NOTE | 2023-06-30 12:22 | PC.NURSE ---
UA sent to lab
[2023-06-30 12:32] LABS: Microscopic, Urine URINE MICROSCOPIC (MICROSCOPIC)
--- NOTE | 2023-06-30 12:51 | CT_ITS ---
FINAL REPORT TECHNIQUE: Axial CT images of the abdomen were obtained with IV contrast only. Coronal reformatted images were also obtained. This study was performed with techniques to keep radiation doses as low as reasonably achievable (ALARA). Individualized dose reduction techniques using automated exposure control or adjustment of mA and/or kV according to the patient''s size were employed. CLINICAL HISTORY: abd pain FINDINGS: The lung bases are clear. The liver has an unremarkable appearance, without evidence of mass. The gallbladder is partially collapsed with wall thickening is a nonspecific finding. There is no evidence of biliary ductal dilatation. The pancreas appears normal. The spleen size is within normal limits. There is no evidence of renal mass or hydronephrosis. There is no evidence of adenopathy. No abnormal fluid collection is seen. No localized inflammatory processes identified. There is a probable partially imaged corpus luteum cyst in the left ovary. IMPRESSION: Nonspecific gallbladder wall thickening. Probable left ovarian corpus luteum cyst. Reviewed, Interpreted and Dictated by Jovanni Lee III, MD Transcribed by Ros Walker Authenticated and [facility]
--- NOTE | 2023-06-30 12:57 | CA_ITS ---
FINAL REPORT TECHNIQUE: Color Doppler, duplex Doppler and compression sonography of the right lower extremity venous system was performed. CLINICAL HISTORY: PAIN RIGHT POPLITEAL FOSSA X SEVERAL DAYS,NKI FINDINGS: There is no evidence of deep venous thrombosis from the level of the groin to the calf. The veins are patent and compressible. IMPRESSION: No evidence of deep venous thrombosis right lower extremity. Reviewed, Interpreted and Dictated by Jovanni Lee III, MD Transcribed by Ros Walker Authenticated and [facility]
--- NOTE | 2023-06-30 12:59 | HMH.EDGENADL ---
Discharge Plan Disposition Patient Disposition: Home, Self-Care Condition: Good Prescriptions Prescriptions: New omeprazole 20 mg capsule,delayed release(DR/EC) 20 mg PO DAILY Qty: 30 0RF Rx Instructions: Take once daily each morning at least 30 minutes before to eating. ondansetron 4 mg tablet,disintegrating 4 mg PO Q6H PRN (Reason: nausea and vomiting) Qty: 20 0RF Rx Instructions: Take if needed up to every 6 hours for nausea/vomiting No Action azithromycin [Zithromax] 250 mg tablet 250 mg PO UD DOSE PK Qty: 6 0RF Rx Instructions: Take two (2) tablets today, then one (1) tablet days #2 thru #5 Referrals Follow up/Referrals: Horace Kuhn DO [Staff Physician] - See instructions (Call for an appointment) Jerry Mcghee MD [Primary Care Provider] - See instructions Activity Restrictions/Add. Instructions Additional Instructions/Restrictions: You were evaluated in the emergency department for abdominal pain and right knee pain. You do not have blood clot. I also did not identify anything acutely abnormal in your abdomen. You had a small amount of gallbladder thickening, however this is nonspecific and does not correlate well with your symptoms. It is possible that you have H. pylori or other gastritis type pathology, you have been prescribed medication to help with your stomach discomfort and nausea. Take these as prescribed. You have been referred to Dr. Kuhn for primary care follow-up. You have been provided his phone number, please contact the office for an appointment. Return to the emergency department with any new, worsening, or otherwise concerning symptoms. Clinical Impressions Clinical Impression: Abdominal pain Qualifiers: Abdominal location: generalized Qualified Code(s): R10.84 - Generalized abdominal pain Instructions Patient Instructions: Acute Abdominal Pain [facility]charge [facility] H[facility] General Chief complaint: Abdominal Pain Stated complaint: stomach pain, pain, right leg, vomiting Time Seen by Provider: 06/30/23 12:38 Mode of Arrival: Wheelchair Source of Information: Patient Limitations: No Limitations Description of Symptoms (Recalled from ER Triage Doc. by RN): Pt reprots upper and lower abd pain x2-3 days, intermittent vomitting. Pt reports I think it's H.pylori . Pt also reports cramping type pain in RLE behind the knee for approx 4 days, no injury. History of Present Illness HPI narrative: This 42-year-old female with a history of prior H. pylori presents to the emergency department with concerns of abdominal pain, nausea, vomiting. She also is having pain behind the right knee for 3 to 4 days. She is concerned for blood clot. Patient states she has a history of H. pylori and has kind of a chronic gnawing pain in her stomach frequently. In the last 3 to 4 days though it flared to the point that she was having nausea and vomiting which she never has. Nonbloody, nonbilious. She also admits to having a few episodes of diarrhea, not black, nonbloody. She denies any urinary symptoms. She denies any chest pain or shortness of breath. No fevers. No other associated symptoms. Patient admits that part of the reason she came in today is that she is having pain behind her right knee and is concerned for possible DVT because she recently lost someone familiar to her who had pain behind their leg and a clot went to their lung and killed them. Related Data Previous Rx's Medication Instructions Recorded azithromycin 250 mg tablet 250 mg PO UD DOSE PK #6 tabs 11/06/22 (Zithromax) omeprazole 20 mg capsule,delayed 20 mg PO DAILY #30 caps 06/30/23 release ondansetron 4 mg disintegrating 4 mg PO Q6H PRN nausea and 06/30/23 tablet vomiting #20 tabs Allergies Allergy/AdvReac Type Severity Reaction Status Date / Time phenazopyridine Allergy Unknown UNKNOWN Verified 06/30/22 11:45 [From Pyridium] [facility] Disclaimer
[2023-06-30 13:03] LABS: Appearance,Urine CLEAR (Clear); Bilirubin,Urine Negative (Negative); Blood, Urine Negative (Negative); Color,Urine YELLOW (Yellow); Glucose,Urine (UA) Negative (Negative); Ketones,Urine Negative (Negative); Leukocyte Esterase,Urine Negative (Negative); Nitrate,Urine Negative (Negative); PH,Urine 6.5 (5.0-8.5); Protein,Urine Negative (Negative); Specific Gravity, Urine <= 1.005 (1.005-1.030); Urobilinogen,Urine 0.2 EU/dl (0.2)
[2023-06-30 13:04] LABS: WBC,Urine Occasional #/hpf (0-3)
[2023-06-30 13:05] LABS: Bacteria,Urine Trace /lpf
[2023-06-30 13:19] LABS: Basophils % 0.4 % (0.1-2.0); Eosinophils # 0.1 K/mm3 (0.0-0.4); Eosinophils % 1.9 % (0.1-12.0); Hematocrit 38.8 % (37.0-47.0); Hemoglobin 13.6 g/dL (12.2-16.2); Lymphocytes # 1.5 K/mm3 (0.7-4.5); Lymphocytes % 25.3 % (10-50); Mean Corpuscular HGB Conc 35.1 g/dL (31.8-35.4); Mean Corpuscular Hemoglobin 34.9 pg (27.0-31.2); Mean Corpuscular Volume 99.2 fl (81-99); Mean Platelet Volume 8.8 fl (7.4-10.4); Monocytes # 0.4 K/mm3 (0.1-1.0); Monocytes % 6.9 % (1.7-9.3); Neutrophils # 3.8 K/mm3 (1.8-7.8); Neutrophils % 65.5 % (37.0-80.0); Platelet Count 169 K/mm3 (142-424); Red Blood Count 3.91 M/mm3 (4.20-5.40); White Blood Count 5.9 K/mm3 (4.8-10.8)
[2023-06-30 13:22] LABS: Chloride 105 mmol/L (98-107)
[2023-06-30 13:23] LABS: Potassium 3.6 mmoL/L (3.5-5.1); Sodium 138 mmol/L (136-145)
[2023-06-30 13:25] LABS: Alanine Aminotransferase 30 U/L (12-78); Alkaline Phosphatase 46 U/L (38-126); Anion Gap 8.6 mEq/L (5-15); Aspartate Amino Transferase 29 U/L (14-36); Bilirubin,Total 0.2 mg/dl (0.2-1.3); Blood Urea Nitrogen 10 mg/dl (7-17); Calcium 8.1 mg/dl (8.4-10.2); Carbon Dioxide 28 mmol/L (22.0-30.0); Creatinine Clearance Estimated 130 mL/min (50-200); Estimated Glomerular Filt Rate 78 ml/min (>60); GFR (African American) 95 ML/MIN (>60); Glucose 99 mg/dl (74-100); Lactic Acid 0.9 mmol/L (0.7-2.1); Lipase 66 U/L (23-300)
[2023-06-30 13:26] LABS: Albumin/Globulin Ratio 1.6 (1.1-1.8); Globulin 2.5 g/dL (1.3-3.2); Total Protein,Serum 6.5 g/dl (6.3-8.2)
--- NOTE | 2023-06-30 13:29 | PC.NURSE ---
Spoke to Abdirahman in lab regarding Urine order.
[2023-06-30 13:48] LABS: Urine Pregnancy, HCG Qual. Negative (Negative)
--- NOTE | 2023-06-30 13:48 | PC.NURSE ---
Doppler at bedside
--- NOTE | 2023-06-30 14:11 | PC.NURSE ---
pt return from CT
--- NOTE | 2023-06-30 15:23 | PC.NURSE ---
[facility] is doing [facility] check if [facility] accept they stated its 31 minutes before arrival waiting on conformation for weather check at this time
--- NOTE | 2023-06-30 15:25 | PC.NURSE ---
confirmed that [facility] has accepted flight will arrive appro 31 minutes Van faxed physician certification and face sheet to [phone]
--- NOTE | 2023-06-30 15:27 | PC.NURSE ---
called house to let them no [facility] eta is 31 min
== END 2023-06-30 15:47 | disposition home or self-care (01) ==
PROVIDERS: Emergency Provider Emergency Medicine; PCP Emergency Medicine
DX: R10.84 Generalized abdominal pain (principal); R11.2 Nausea with vomiting, unspecified; M25.561 Pain in right knee; F17.210 Nicotine dependence, cigarettes, uncomplicated; Z86.19 Personal history of other infectious and parasitic diseases
CPT/HCPCS: 74160; 80053; 81001; 81025; 83605; 83690; 85025; 93971; 96374; 96375; 99285; J0131; J2405; Q9967

== ENCOUNTER 2023-07-25 15:40 | Emergency (ER) | payer MEDICAID, SELFPAY ==
[2023-07-25 16:10] VITALS: BP 148/90; PULSE 93; RESP 17; TEMP 37.1; O2SAT 99; BMI 40.5
--- NOTE | 2023-07-25 16:30 | EXP.UTC ---
Discharge Plan Disposition Patient Disposition: Home, Self-Care Condition: Good Prescriptions Prescriptions: No Action No Known Home Medications Referrals Follow up/Referrals: Jerry Mcghee MD [Primary Care Provider] - See instructions Activity Restrictions/Add. Instructions Additional Instructions/Restrictions: *Monitor Temp, Over the counter Motrin or Tylenol as directed/as needed Tylenol every 4 hours and Motrin every 6 hours (as long as your family doctor has told you that you can take it) for fever or pain. and straight to ER if unable to lower temp less than 101.0 after medication given *Warm salt water gargles may help to soothe the throat *Throat Lozenges? *Warm fluids like tea with honey may help to soothe the throat? *Sleep elevated *Humidifier/Vaporizer Follow up IMMEDIATELY for new or worsening symptoms or no Noticeable improvement over the next 48-72 hours. 911 for difficulty breathing or swallowing You were tested for today for COVID19 your test result should be back in the next 24 hours You may check your results on the [facility] Portal if you are positive for COVID you will need to Quarantine for 5 days Clinical Impressions Clinical Impression: Viral syndrome Stand Alone Forms Stand Alone Forms: Work/School Release Instructions Patient Instructions: DI for COVID-19 (Suspected or Confirmed ), DI for Viral Syndrome Discharge ED Provider: Soraya Valderrama [facility] [place] H[place] General Stated complaint: headache,fever,chills,cough Mode of Arrival: Ambulatory Source of Information: Patient Limitations: No Limitations Time Seen by Provider: 07/25/23 16:31 Description of Symptoms (Recalled from Triage Doc. by RN): PATIENT C/O BODY ACHES, FEVER, AND RUNNY NOSE SINCE YESTERDAY. REPORTS A POSITIVE AT HOME COVID TEST HEENT Symptoms (Recalled from RN notes): Yes Resp Symptoms (Recalled from RN notes): Yes Skin Symptoms (Recalled from RN notes): No MS Symptoms (Recalled from RN notes): No Functional Status (Recalled from RN notes): WNL History of Present Illness Provider Complaint: Patient states that her had COVID last week and she started last night with symptoms and took an at home COVID test and it was positive so she has to have an official test for work so she came in to get tested States that she has been having body ache, chills, fever and stuffy nose Related Data Home Medications Medication Instructions Recorded Confirmed No Known Home Medications 07/25/23 07/25/23 Allergies Allergy/AdvReac Type Severity Reaction Status Date / Time phenazopyridine Allergy Unknown UNKNOWN Verified 06/30/22 11:45 [From Pyridium] Worker's Comp Is this a Worker's Comp case?: No [facility] Disclaimer: The information contained in this section may have been updated after the patient was seen, as this information can be updated by other users. Medical History Abnormal electrocardiography Aftercare following right shoulder joint replacement surgery Breast implant status Daytime somnolence Dyspnea Near syncope Obesity Restless sleeper Sinus bradycardia Tobacco dependence syndrome Surgical History History of Family History Other Cancer Coronary artery disease Heart attack Social History Smoking Status: Current every day smoker tobacco type: cigarettes packs per day: 1 alcohol intake: never substance use type: denies use current occupational status: employed Travel in the last 8 weeks: None household members: significant other housing: house marital status: single ROS Obtained: Yes All systems reviewed & no additional complaints except as documented and Yes Systems reviewed as appropriate & no add
[2023-07-25 16:39] VITALS: BP 148/90; PULSE 93; RESP 17; TEMP 37.1; O2SAT 99
== END 2023-07-25 16:42 | disposition home or self-care (01) ==
PROVIDERS: Emergency Provider Nurse Practitioner; PCP Emergency Medicine
DX: U07.1 COVID-19 (principal); R51.9 Headache, unspecified; R50.9 Fever, unspecified; R05.9 Cough, unspecified; R09.81 Nasal congestion; F17.210 Nicotine dependence, cigarettes, uncomplicated
CPT/HCPCS: 87635; 99212; 99214; G0463

== ENCOUNTER 2024-07-14 10:41 | Emergency (ER) | payer MEDICAID, SELFPAY ==
[2024-07-14] VITALS (8 sets, daily range): BP systolic 96–140; BP diastolic 51–94; PULSE 46–75; RESP 12–20; TEMP 36.6–36.8; O2SAT 96–100; BMI 41.1
--- NOTE | 2024-07-14 10:43 | ECG_ITS ---
APPROVED REPORT Exam: Resting ECG HR:82 bpm ECG Measurements Heart Rate 82 AXES NJ 157 P 63 QRSd 84 QRS 2 QT 351 T 61 QTc 389 Conclusion Sinus rhythm Electronically signed by : LISA WANG, 07/16/2024 19:42:08
--- NOTE | 2024-07-14 10:48 | XR_ITS ---
PROCEDURE INFORMATION: Exam: XR Chest Exam date and time: 07/14/2024 10:53 AM Age: 43 years old Clinical indication: Pain; Angina pectoris; Additional info: Chest pain. Known crystalized breast implant left side TECHNIQUE: Imaging protocol: Radiologic exam of the chest. Views: 2 views. COMPARISON: CT ABDOMEN PELVIS W CON 08/14/2021 10:08 PM FINDINGS: Lungs: Unremarkable. No consolidation. Pleural spaces: Unremarkable. No pleural effusion. No pneumothorax. Heart/Mediastinum: Unremarkable. No cardiomegaly. Bones/joints: Unremarkable. Soft tissues: Left breast implant. IMPRESSION: No radiographic evidence of acute cardiopulmonary disease.
--- NOTE | 2024-07-14 10:48 | HMH.EDGENADL ---
Discharge Plan Disposition Patient Disposition: Home, Self-Care Condition: Good Prescriptions Prescriptions: New omeprazole 20 mg capsule,delayed release(DR/EC) 20 mg PO DAILY 28 Days Qty: 28 0RF nitroglycerin 0.4 mg tablet, sublingual 0.4 mg sublingual Q5M PRN (Reason: chest pain) Qty: 14 0RF Rx Instructions: do not exceed 3 doses per episode Referrals Follow up/Referrals: Michael Schultz APRN [Primary Care Provider] - See instructions Horace Montague MD [Staff Physician] - See instructions Activity Restrictions/Add. Instructions Additional Instructions/Restrictions: I have prescribed a medication for you to take daily which can reduce stomach acid and may help with some of your symptoms. I have additionally prescribed a medication called nitroglycerin that you can take by mouth under your tongue if you are having this similar type of chest pain. This was of the medication you were given in the emergency department that resolved your chest pain. As we discussed, your heart enzymes are both within normal limits, you are stable for discharge at this time, I have placed a referral to the renal dialysis rn for you to follow-up and possibly get a repeat stress test pending on what the specialist thinks. Please return with any new or worsening symptoms. Clinical Impressions Clinical Impression: Acute chest pain Print Language Print Language: [place] Citizen Discharge ED Provider: Damion Ramos Adult HPI General Chief complaint: Chest Pain Stated complaint: Chest Pain Time Seen by Provider: 07/14/24 10:48 History of Present Illness HPI narrative: The patient presents with a chief complaint of chest pain that started around 6:30 AM while getting her children ready for school. The pain was located on the left side of the chest and was accompanied by facial numbness. It then radiated to the patient's back, specifically between the shoulders, but did not spread down any arms. The patient has experienced similar episodes in the past and has undergone a stress test at Dr. Montague's office one or two years ago, which showed no abnormalities. The patient's symptoms improved with the administration of a nitroglycerin tablet. The patient denies any associated abdominal pain, nausea, vomiting, recent exposure to sick individuals, or changes in medications. There are no known medical conditions, and the patient has only undergone routine checkups and stress tests in the past. The patient reports that she doesn't usually seek medical attention for these episodes, often attributing them to gas or other minor issues. However, today her boss advised her to go to the ER to get checked out. The patient mentions that heart trouble runs in her family. She also notes that during these episodes, she sometimes has difficulty breathing. The stress test performed previously was a medication-based test, not a treadmill test. Please note that above description of symptoms, in this electronic medical record under categorization of recalled from ER triage doctor by RN are reflective of an initial nursing assessment, however, is not reflective of my full history and physical exam that was personally taken and clarified. Consequentially, this preceding description of symptoms, which may include the patient's categorized chief complaint in the EMR, do not reflect my personal clinical impression, and the ultimate description of history of present illness and patient stated complaints should be deferred to this section of the note. Unless stated otherwise or congruent with this section of the note, additional signs, symptoms, or incongruence should be interpreted as inaccurate with my clinical impression. Related Data Previous Rx's ?Medication ?Instructions ?Recorded nitroglycerin 0.4 mg sublingual 0.4 mg sublingual Q5M PRN chest 07/14/24 tablet pain #14 tabs omeprazole 20 mg capsule,delayed 20 mg PO DAILY 28 days #28 caps 07/14/24 release Allergies Allergy/AdvReac Type Severity Reaction Status Date / Time phenazopyridine (From Allergy Unknown UNKNOWN Verified 06/30/22 11:45 Pyridium) acetaminophen (From Percocet) Allergy Rash Verified 07/14/24 11:04 morphine Allergy Rash Verified 07/14/24 11:03 oxycodone (From Percocet) Allergy Rash Verified 07/14/24 11:04 PFSH PFS Disclaimer: The information contained in this section may have been updated after the patient was seen, as this information can be updated by other users. Medical History Abnormal electrocardiography Aftercare following right shoulder joint replacement surgery Breast implant status Daytime somnolence Dyspnea Near syncope Obesity Restless sleeper Sinus bradycardia Tobacco dependence syndrome Surgical History History of Family History Other Cancer Coronary artery disease Heart attack Social History Smoking Status: Never smoker alcohol intake: never substance use type: denies use current occupational status: employed Travel in the last 8 weeks: None household members: significant other housing: house marital status: single Other Medical History Have you received the Flu Vaccine for this season: Yes Have you received the Pneumonia Vaccine: No ROS Obtained: Yes other As per HPI Physical Exam General General appearance: alert and in no apparent distress Head Head exam: atraumatic and normocephalic Eye Eye exam: Present normal appearance Neck Neck exam: Present normal inspection Chest Chest inspection: Present normal inspection and symmetric chest wall rise Respiratory Respiratory exam: Present normal lung sounds bilaterally; Absent respiratory distress Cardiovascular Cardiovascular exam: Present regular rate and normal rhythm Abdominal Exam Abdominal exam: Present soft Neurological Exam Neurological exam: Present alert and oriented X3 Psychiatric Psychiatric exam: Present normal affect and normal mood Skin Skin exam: Present warm and dry Medical Decision Making Medical Records Medical records reviewed: Yes I reviewed the patient's medical records. Screening: Per USPSTF and CDC recommendations, given the prevalence of disease in our region, it is our hospital?s policy to screen for HIV and viral Hepatitis for all patients aged 18 and over and those with ongoing risk factors. Ian Inquiry Pt receiving controlled substance: No Vital Signs: 07/14/24 10:42 07/14/24 11:01 07/14/24 11:31 Temperature 97.8 F Temperature Source Oral Pulse Rate 61 52 L Pulse Rate [Right Radial] 75 Respiratory Rate 20 14 19 Blood Pressure 117/73 113/57 L Blood Pressure [Right Arm] 140/94 H Blood Pressure Mean 87 75 Blood Pressure Mean [Right Arm] 109 02 Sat by Pulse Oximetry 98 100 100 Oxygen Delivery Method Room Air 07/14/24 12:01 07/14/24 12:31 07/14/24 13:13 Temperature Temperature Source Pulse Rate 53 L 56 L 51 L Pulse Rate [Right Radial] Respiratory Rate 12 13 12 Blood Pressure 118/60 96/62 L 115/51 L Blood Pressure [Right Arm] Blood Pressure Mean 77 Blood Pressure Mean [Right Arm] 02 Sat by Pulse Oximetry 100 96 100 Oxygen Delivery Method Room Air Room Air 07/14/24 13:30 07/14/24 14:55 Temperature 98.2 F Temperature Source Pulse Rate 46 L 46 L Pulse Rate [Right Radial] Respiratory Rate 15 20 Blood Pressure 125/62 125/62 Blood Pressure [Right Arm] Blood Pressure Mean Blood Pressure Mean [Right Arm] 02 Sat by Pulse Oximetry 100 Oxygen Delivery Method Room Air Room Air Lab Data Lab Results 07/14/24 10:46: WBC 8.9, RBC 4.04 L, Hgb 13.5, Hct 38.8, MCV 96.0, MCH 33.5 H, MCHC 34.9, RDW 13.3, Plt Count 203, MPV 8.5, Neut % (Auto) 71.3, Lymph % (Auto) 20.8, Davidson % (Auto) 5.7, Eos % (Auto) 1.6, Baso % (Auto) 0.6, Neut # (Auto) 6.3, Lymph # (Auto) 1.9, Davidson # (Auto) 0.5, Eos # (Auto) 0.1, Baso # (Auto) 0.1, Sodium 139, Potassium 4.0, Chloride 108 H, Carbon Dioxide 23, Anion Gap 12.0, BUN 15, Creatinine 0.90, Estimated Creat Clear 125, Estimated GFR 68, Est GFR ( Amer) 82, Glucose 109 H, Calcium 8.8, Total Bilirubin 0.6, AST 26, ALT 23, Alkaline Phosphatase 39, Troponin I < 0.01, Total Protein 6.8, Albumin 4.2, Globulin 2.6, Albumin/Globulin Ratio 1.6, Lipase 116 07/14/24 13:15: Troponin I < 0.01 07/14/24 10:46 07/14/24 10:46 Orders (Tests/Meds): ED MEDICATIONS Discontinued Medications Generic Name Dose Route Start Last Admin Trade Name Flakitoq PRN Reason Stop Dose Admin Aspirin 325 mg 07/14/24 10:48 07/14/24 10:56 Aspirin 325mg Tablet PO 07/14/24 10:49 325 mg ONCE ONE Administration Belladonna Alkaloids 60 ml 07/14/24 10:48 07/14/24 11:08 Belladonna Alkaloids 60 Ml Ml PO 07/14/24 10:49 60 ml ONCE ONE Administration Nitroglycerin 0.4 mg 07/14/24 10:48 07/14/24 10:57 Nitroglycerin 0.4mg Sl Tablet SL 08/13/24 10:47 0.4 mg Q5MINP PRN Administration Chest Pain Sodium Chloride 10 ml 07/14/24 11:25 Sodium Chloride 0.9% 10ml Flush Syringe IV 08/13/24 11:24 NEEDED PRN Maintain IV Site ORDERS Category Date Time Status XR chest 2V Stat Exams 07/14/24 10:48 Completed CBC w/Auto Diff [Complete Blood Count Auto Diff] Stat Lab 07/14/24 10:46 Completed CMP [Comprehensive Metabolic Panel] Stat Lab 07/14/24 10:46 Completed Lipase Stat Lab 07/14/24 10:46 Completed Troponin I Q3H Lab 07/14/24 10:46 Completed Troponin I Q3H Lab 07/14/24 13:15 Completed HEART Score History (anamnesis): Moderately suspicious ECG: Non-specific disturbance Age: <45 years Risk factors: No known risk factors Troponin: </= normal limit HEART Score: 2 Medical Decision Narrative: Patient with history and exam per above presenting for evaluation of chest pain Diagnoses considered include ACS, costochondritis, pneumonia, GERD, low clinical index of suspicion at this time for pulmonary embolism, dissection, no further workup is indicated at this time for either of these latter 2 etiologies ED workup and treatment included: ED MEDICATIONS Discontinued Medications Generic Name Dose Route Start Last Admin Trade Name Freq PRN Reason Stop Dose Admin Aspirin 325 mg 07/14/24 10:48 07/14/24 10:56 Aspirin 325mg Tablet PO 07/14/24 10:49 325 mg ONCE ONE Administration Belladonna Alkaloids 60 ml 07/14/24 10:48 07/14/24 11:08 Belladonna Alkaloids 60 Ml Ml PO 07/14/24 10:49 60 ml ONCE ONE Administration Nitroglycerin 0.4 mg 07/14/24 10:48 07/14/24 10:57 Nitroglycerin 0.4mg Sl Tablet SL 08/13/24 10:47 0.4 mg Q5MINP PRN Administration Chest Pain Sodium Chloride 10 ml 07/14/24 11:25 Sodium Chloride 0.9% 10ml Flush Syringe IV 08/13/24 11:24 NEEDED PRN Maintain IV Site ORDERS Category Date Time Status XR chest 2V Stat Exams 07/14/24 10:48 Completed CBC w/Auto Diff [Complete Blood Count Auto Diff] Stat Lab 07/14/24 10:46 Completed CMP [Comprehensive Metabolic Panel] Stat Lab 07/14/24 10:46 Completed Lipase Stat Lab 07/14/24 10:46 Completed Troponin I Q3H Lab 07/14/24 10:46 Completed Troponin I Q3H Lab 07/14/24 13:15 Completed Labs were independently interpreted by me, significant for no acute findings Imaging was independently visualized and interpreted by me, significant for no acute findings Please refer to radiology report for full details. I discussed my clinical impression with patient and answered all questions. At this time, the evidence for any other entities in the differential is insufficient to warrant any further testing or ED observation. This was explained to the patient. The patient was advised that persistent or worsening symptoms require further evaluation. Critical Care Critical Care Time Critical Care Time: No
[2024-07-14 10:56] LABS: Basophils # 0.1 K/mm3 (0-0.2); Basophils % 0.6 % (0.1-2.0); Eosinophils # 0.1 K/mm3 (0.0-0.4); Eosinophils % 1.6 % (0.1-12.0); Hematocrit 38.8 % (37.0-47.0); Hemoglobin 13.5 g/dL (12.2-16.2); Lymphocytes # 1.9 K/mm3 (0.7-4.5); Lymphocytes % 20.8 % (10-50); Mean Corpuscular HGB Conc 34.9 g/dL (31.8-35.4); Mean Corpuscular Hemoglobin 33.5 pg (27.0-31.2); Mean Platelet Volume 8.5 fl (7.4-10.4); Monocytes # 0.5 K/mm3 (0.1-1.0); Monocytes % 5.7 % (1.7-9.3); Neutrophils # 6.3 K/mm3 (1.8-7.8); Neutrophils % 71.3 % (37.0-80.0); Platelet Count 203 K/mm3 (142-424); Red Blood Count 4.04 M/mm3 (4.20-5.40); Red Cell Distribution Width 13.3 % (11.5-17.5); White Blood Count 8.9 K/mm3 (4.8-10.8)
[2024-07-14] MEDS: ASPIRIN 325MG TABLET 325 MG PO (10:56)
[2024-07-14] MEDS: NITROGLYCERIN 0.4MG SL TABLET 0.4 MG SL (10:57)
[2024-07-14 10:59] LABS: Albumin Level 4.2 g/dl (3.5-5.0); Chloride 108 mmol/L (98-107); Sodium 139 mmol/L (136-145)
[2024-07-14 11:02] LABS: Alanine Aminotransferase 23 U/L (12-78); Albumin/Globulin Ratio 1.6 (1.1-1.8); Alkaline Phosphatase 39 U/L (38-126); Aspartate Amino Transferase 26 U/L (14-36); Bilirubin,Total 0.6 mg/dl (0.2-1.3); Blood Urea Nitrogen 15 mg/dl (7-17); Calcium 8.8 mg/dl (8.4-10.2); Carbon Dioxide 23 mmol/L (22.0-30.0); Creatinine Clearance Estimated 125 mL/min (50-200); Estimated Glomerular Filt Rate 68 ml/min (>60); GFR (African American) 82 ML/MIN (>60); Globulin 2.6 g/dL (1.3-3.2); Glucose 109 mg/dl (74-100); Lipase 116 U/L (23-300); Total Protein,Serum 6.8 g/dl (6.3-8.2)
[2024-07-14] MEDS: BELLADONNA ALKALOIDS 60 ML ML PO (11:08)
--- NOTE | 2024-07-14 11:14 | PC.NURSE ---
PT STATES CHEST PAIN POST NITRO ADMIN WENT FROM A 6 TO 0
[2024-07-14 11:15] LABS: Troponin I < 0.01 ng/ml (0.00-0.034)
[2024-07-14 14:30] LABS: Troponin I < 0.01 ng/ml (0.00-0.034)
== END 2024-07-14 14:56 | disposition home or self-care (01) ==
PROVIDERS: Emergency Provider Emergency Medicine; PCP Nurse Practitioner Family
DX: R07.9 Chest pain, unspecified (principal)
CPT/HCPCS: 71046; 80053; 83690; 84484; 85025; 93005; 99285

== ENCOUNTER 2024-08-01 15:21 | Outpatient (CLI) | payer MEDICAID, SELFPAY | END 2024-08-01 23:59 | disposition home or self-care (01) | LOC: RT 15:22 | PROVIDERS: PCP Nurse Practitioner Family; Visit Provider Internal Medicine | DX: R42 Dizziness and giddiness (principal); R55 Syncope and collapse; R06.09 Other forms of dyspnea; R07.89 Other chest pain; R00.1 Bradycardia, unspecified | CPT/HCPCS: 93270 ==

== ENCOUNTER 2024-08-05 09:16 | Outpatient (CLI) | payer MEDICAID, SELFPAY ==
[2024-08-05 09:37] LABS: Basophils # 0.1 K/mm3 (0-0.2); Eosinophils # 0.3 K/mm3 (0.0-0.4); Eosinophils % 3.6 % (0.1-12.0); Hematocrit 41.2 % (37.0-47.0); Hemoglobin 13.8 g/dL (12.2-16.2); Lymphocytes # 1.9 K/mm3 (0.7-4.5); Lymphocytes % 26.9 % (10-50); Mean Corpuscular HGB Conc 33.4 g/dL (31.8-35.4); Mean Corpuscular Hemoglobin 32.9 pg (27.0-31.2); Mean Corpuscular Volume 98.4 fl (81-99); Mean Platelet Volume 8.6 fl (7.4-10.4); Monocytes # 0.5 K/mm3 (0.1-1.0); Monocytes % 6.6 % (1.7-9.3); Neutrophils # 4.3 K/mm3 (1.8-7.8); Neutrophils % 61.9 % (37.0-80.0); Platelet Count 213 K/mm3 (142-424); Red Blood Count 4.18 M/mm3 (4.20-5.40); Red Cell Distribution Width 13.1 % (11.5-17.5); White Blood Count 6.9 K/mm3 (4.8-10.8)
[2024-08-05 10:54] LABS: Alanine Aminotransferase 44 U/L (12-78); Albumin Level 3.9 g/dl (3.5-5.0); Alkaline Phosphatase 41 U/L (38-126); Anion Gap 6.4 mEq/L (5-15); Aspartate Amino Transferase 33 U/L (14-36); Bilirubin,Direct 0.3 mg/dl (0.0-0.4); Bilirubin,Indirect 0.4 mg/dL (0.0-0.9); Bilirubin,Total 0.7 mg/dl (0.2-1.3); Bilirubin,Unconjugated 0.4 mg/dL (0.0-1.1); Blood Urea Nitrogen 13 mg/dl (7-17); Calcium 9.2 mg/dl (8.4-10.2); Carbon Dioxide 29 mmol/L (22.0-30.0); Chloride 108 mmol/L (98-107); Cholesterol 181 mg/dl (140-200); Estimated Glomerular Filt Rate 68 ml/min (>60); GFR (African American) 82 ML/MIN (>60); Glucose 95 mg/dl (74-100); HDL Cholesterol 45 mg/dl (40-60); Potassium 4.4 mmoL/L (3.5-5.1); Sodium 139 mmol/L (136-145); Total Protein,Serum 6.1 g/dl (6.3-8.2); Triglycerides 102 mg/dl (30-150); VLDL Cholesterol 20 mg/dL (0-40)
[2024-08-05 11:24] LABS: Thyroid Stimulating Hormone 7.28 uIU/mL (0.465-4.68)
== END 2024-08-05 23:59 | disposition home or self-care (01) ==
LOC: LAB 09:18
PROVIDERS: PCP Nurse Practitioner Family; Visit Provider Physician Assistant
DX: R06.09 Other forms of dyspnea (principal); R07.9 Chest pain, unspecified; R00.1 Bradycardia, unspecified; E03.9 Hypothyroidism, unspecified; R07.89 Other chest pain; R55 Syncope and collapse; R40.0 Somnolence; G47.9 Sleep disorder, unspecified; R42 Dizziness and giddiness; R94.31 Abnormal electrocardiogram [ECG] [EKG]; E66.9 Obesity, unspecified; Z68.41 Body mass index [BMI] 40.0-44.9, adult
CPT/HCPCS: 36415; 80048; 80061; 80076; 83036; 84439; 84443; 85025

== ENCOUNTER 2024-08-28 06:12 | Outpatient (CLI) | payer MEDICAID, SELFPAY ==
--- NOTE | 2024-08-28 | CA_ITS ---
APPROVED REPORT Exam: Pharmacologic Technologist: Enriqueta Shepherd Ht: 5 ft 1 in Wt: 222 lbs BSA: 1.97 m2 HR: 46 bpm BP: 105/42 mmHg Rhythm: sinus abbie Medical History Cardiac Risk Factors: FHX of CAD, Smoking Stress Test Details HR Resting HR: 46 bpm Max Heart Rate (APMHR): 176 bpm Target HR (85% APMHR): 150 bpm Recovery HR: 79 bpm BP Resting BP: 105.0/42.0 mmHg Recovery BP: 129.0/71.0 mmHg ECG Resting ECG: sinus abbie Stress ECG Conclusion During lexiscan pt experinced nausea and headache. No CP noted. No arrhythmias noted. No significant ST changes. CONCLUSION Non diagnsotic lexiscan stress. Myoview images reported separately. Electronically signed by : Robyn Tilley MD 08/29/2024 08:10:02
--- NOTE | 2024-08-28 06:15 | NM_ITS ---
APPROVED REPORT Exam: Nuclear Stress Test Indication: Chest pain, SOB, Tobacco use, Family history Patient Location: Outpatient Stress Tech: Enriqueta MARRERO Tech:Karena Munson, ARRT, RT (R)(N) Ht: 5 ft 1 in Wt: 218 lbs Bra Size: 38D HR: 46 bpm BP: 105/42 mmHg BSA: 1.96 m2 TID: 1.41 BMI: 41.1 History: Chest pain, SOB, Tobacco use, Family history Procedure: Patient received 0.4 mg of intravenous Lexiscan, resting heart rate 46 bpm, resting blood pressure 105/42 mmHg, with Lexiscan maximum heart rate achieved was 102 bpm which is % of the maximum predicted heart rate and blood pressure was 129/71 mmHg. With Lexiscan, patient denied any complaint of chest pain. Cardiac Stress and Resting SPECT Images: Cardiac Stress and Resting SPECT images were obtained using technetium 99m Myoview 29.4 mCi stress and 10.09 mCi at rest. Resting and stress imaging in supine and prone positions demonstrate no evidence of fixed or reversible perfusion defects. There is increase in transient ischemic dilatation ratio (TID 1.41), suggestive of possible multivessel disease or balanced ischemia. Gated imaging demonstrates low-normal global and regional LV systolic function. LVEF is calculacated at 51%. Conclusion: No evidence of fixed or reversible perfusion defects. There is increase in transient ischemic dilatation ratio (TID 1.41), suggestive of possible multivessel disease or balanced ischemia. Gated imaging demonstrates low-normal global and regional LV systolic function. LVEF is calculacated at 51%. Electronically signed by : Robyn Tilley MD 08/28/2024 10:54:58
[2024-08-28] MEDS: REGADENOSON 0.4MG/5ML SYRINGE 0.4 MG IV (08:24)
[2024-08-28] MEDS: SODIUM CHLORIDE 0.9% 10ML SYR (RAD ONLY) 10 ML IV ×2 (08:24)
[2024-08-28] MEDS: ISOTOPE MYOVIEW (PER STUDY) 1 DOSE IV (08:24)
== END 2024-08-28 23:59 | disposition home or self-care (01) ==
LOC: RAD 06:13
PROVIDERS: PCP Nurse Practitioner Family; Visit Provider Physician Assistant
DX: R06.09 Other forms of dyspnea (principal); R07.89 Other chest pain; E03.9 Hypothyroidism, unspecified; R40.0 Somnolence; R55 Syncope and collapse
CPT/HCPCS: 78452; 93017; 93018; A9502; J2785

== ENCOUNTER 2024-09-18 07:12 | Outpatient (CLI) | payer MEDICAID, SELFPAY ==
--- NOTE | 2024-09-18 07:12 | CT_ITS ---
APPROVED REPORT Design Checker: CLINICAL INDICATION Chest Pain TECHNIQUE Image Acquisition: A 128 slice MDCT scanner ([employer] View) was used for data acquisition. A noncontrast coronary calcium scan was performed. A CT attenuation threshold of 130 Hounsfield units (HU) was used for the detection of calcium in contiguous voxels of 1 sq mm in area to be counted as individual lesions. Bolus tracking in the ascending aorta with a threshold of 180 HU was performed. Immediately afterwards, ECG synchronized cardiac CT was then performed from the cardiac base to apex using retrospective gating with ECG tube current modulation. A total of 85 mL of Isovue 370 mg/mL contrast medium was administered at 5 mL/sec followed by a saline flush using a biphasic injection protocol. A tube voltage of 120 KVp was used. The patient received the following medications prior to the cardiac CT. 0.8 mg of sublingual nitroglycerin The average heart rate at the time of acquisition was 62 bpm and regular. Image Reconstruction Transaxial images were reconstructed at 0.67 mm slide thickness. Data was reviewed interactively on an advanced workstation capable of 2 and 3-dimensional displays in all conventional reconstruction formats, including multiplanar reformations, maximum intensity projections, curved multiplanar reformations, and volume rendered reconstructions. When applicable, selected routine images describing the relevant coronary anatomy and pathology were saved and sent to PACS. Complications None Technical Quality Overall image quality was suboptimal. Coronary artery opacification was fair. Total DLP (Dose-Length Product) is 2144.5 mGy-cm. The reported value represents the total of one or more individual components during the CT acquisition of this date and at this time, and as such, the same value may appear in more than one CT report depending on the interpreting/reporting physicians. COMPARISON None FINDINGS CT Coronary Calcium Scoring LMA (Left Main Artery) = 0 LAD (Left Anterior Descending) = 0 LCX (Left Coronary Circumflex) = 0 RCA (Right Coronary Artery) = 0 Total Calcium Score = 0 using the AJ-130 method. The interpretation of the calcium heart score is based on the following continuum*: 0 = no calcified plaque detected (risk of coronary artery disease is very low ??? less than 5%) 1-10 = calcium detected in extremely minimal levels (risk of coronary diseases is still low ??? less than 10%) 11-100 = mild levels of plaque detected with certainty (mild or minimal narrowing of heart arteries is likely) 101-400 = definite,at least moderate levels of plaque detected (relatively high risk of a heart attack within 3-5 years) >401-999 = extensive levels of plaque detected (high risk of heart attack, high levels of vascular disease are present, high likelihood of at least one significant coronary narrowing) *The calcium heart score quantifies the burden of coronary calcification/plaque in the coronary arteries. The calcium heart score is not able to evaluate the presence or burden of non-calcified (i.e. soft) plaque. There is no identifiable calcification in the aortic valve, mitral annulus or mitral valve, pericardium, or myocardium. Coronary CT Angiography The coronary arterial system is right dominant. Quantitative Stenosis Grading: Left Main (LM): The left main originates normally from the left sinus of Valsalva. The LM bifurcates into the left anterior descending artery and left circumflex artery. The LM is patent with no evidence of atherosclerosis. Left Anterior Descending (LAD) and Diagonal Branches: The LAD gives off 3 diagonal branch(es). The LAD and its branches are patent with no evidence of atherosclerosis. There is no evidence of LAD-myocardial bridge. Left Circumflex (LCX) and Obtuse Marginals (OM): The LCX gives off 2 Obtuse Marginal (OM) branch(es). The LCX and its branches are patent with no evidence of atherosclerosis. Right Coronary Artery (RCA): The RCA originates normally from the right sinus of Valsalva. The RCA gives off a posterior descending artery (PDA) and posterolateral (PL) branches. The RCA and its branches are patent with no evidence of atherosclerosis. Non-Coronary Cardiac Findings: Analysis of the left ventricular (LV) structure and function was performed after 3-D reconstruction of the LV from axial images, with user-corrected automatic contouring for assessment of LV volumes and user-defined reconstruction from oblique planes for measurement of 3-D cardiac structure and function. -The left ventricle systolic function is normal. -There is no left atrial appendage filling defect. Two right pulmonary veins and two left pulmonary veins drain normally into the left atrium. -No pericardial thickening or calcification. -Central and branch pulmonary arteries in the [id number] are unremarkable. -Thoracic aorta within the visualized thoracic aortic-branches in the [id number] is unremarkable. Extracardiac Structures No significant extra-cardiac findings. Note, however, that this study is focused on the cardiac findings. IMPRESSION -Suboptimal image quality. This may affect the diagnostic interpretation of the study findings. -Absence of coronary calcification with an Agatston score = 0 using the AJ-130 method. -No evidence of significant flow-limiting atherosclerosis of the coronary arteries. -CAD-RADS 0. Management recommendations per ACC/AHA guidelines*, as clinically appropriate. *Recommendations: CAD RADS 0: Reassurance. Consider non-atherosclerotic causes of chest pain. CAD RADS 1: Consider non-atherosclerotic causes of chest pain. Consider preventive therapy and risk factor modification. CAD RADS 2: Consider non-atherosclerotic causes of chest pain. Consider preventive therapy and risk factor modification, particularly for patients with nonobstructive plaque in multiple segments. CAD RADS 3: Consider further functional testing. Consider symptom-guided anti-ischemic and preventive pharmacotherapy as well as risk factor modification per published guideline statements. CAD RADS 4A: Consider further functional testing or invasive coronary angiography with revascularization per published guideline statements. Consider symptom-guided anti-ischemic and preventive pharmacotherapy as well as risk factor modification per published guideline statements. CAD RADS 4B: Invasive coronary angiography recommended with revascularization per published guideline statements. Consider symptom-guided anti-ischemic and preventive pharmacotherapy as well as risk factor modification per published guideline statements. CAD RADS 5: Consider invasive angiography and/or viability assessment with revascularization per published guideline statements. Consider symptom-guided anti-ischemic and preventive pharmacotherapy as well as risk factor modification per published guideline statements. CRITICAL RESULT None COMMUNICATION Per this written report The coronary and cardiac findings of this CCTA were reviewed, reported, and signed by Ruperto Tilley MD (Caramel Cutter Helper) Conclusion Electronically signed by : Robyn Tilley MD 09/20/2024 10:39:15
[2024-09-18 07:31] VITALS: BMI 40.6
[2024-09-18 07:41] VITALS: BP 127/80; PULSE 51; RESP 18; TEMP 36.3; O2SAT 100
[2024-09-18 08:04] LABS: Blood Urea Nitrogen 12 mg/dl (7-17); Calcium 9.2 mg/dl (8.4-10.2); Carbon Dioxide 26 mmol/L (22.0-30.0); Chloride 105 mmol/L (98-107); Creatinine Clearance Estimated 111 mL/min (50-200); Estimated Glomerular Filt Rate 60 ml/min (>60); GFR (African American) 73 ML/MIN (>60); Glucose 99 mg/dl (74-100); Sodium 139 mmol/L (136-145)
[2024-09-18 08:19] LABS: Anion Gap 11.9 mEq/L (5-15); Potassium 3.9 mmoL/L (3.5-5.1)
[2024-09-18 09:08] LABS: HCG Qualitative, Serum Negative (Negative)
[2024-09-18 09:28] LABS: Free T4 (Free Thyroxine) 0.83 ng/dl (0.78-2.19)
[2024-09-18 09:56] VITALS: BP 143/67; O2SAT 100
[2024-09-18] MEDS: NITROGLYCERIN 0.4MG SL TABLET SL (09:57)
[2024-09-18 09:59] VITALS: BP 109/52; PULSE 51; O2SAT 100
[2024-09-18] MEDS: IOPAMIDOL-370 (76%);100ML BOTTLE 85 ML IV (10:18)
[2024-09-18] MEDS: 0.9 % SODIUM CHLORIDE 50 ML VIAL IV (10:18)
[2024-09-18] MEDS: SODIUM CHLORIDE 0.9% 10ML SYR (RAD ONLY) 10 ML IV (10:19)
== END 2024-09-18 10:20 | disposition home or self-care (01) ==
PROVIDERS: Nurse Practitioner Family; PCP Nurse Practitioner Family; Visit Provider Physician Assistant
DX: R94.31 Abnormal electrocardiogram [ECG] [EKG] (principal); R93.1 Abnormal findings on diagnostic imaging of heart and coronary circulation; R06.09 Other forms of dyspnea; R07.89 Other chest pain
CPT/HCPCS: 75574; 80048; 84439; 84443; 84703; Q9967

== ENCOUNTER 2024-10-10 08:03 | Outpatient (CLI) | payer MEDICAID, SELFPAY ==
--- NOTE | 2024-10-10 | CA_ITS ---
APPROVED REPORT Exam: Exercise Treadmill Ht: 5 ft 1 in Wt: 224 lbs BSA: 1.98 m2 Medical History Medications: nitroglycerin, omeprazole Stress Test Details HR Resting HR: 51 bpm Max Heart Rate (APMHR): 176 bpm Max HR Achieved: 132 bpm Target HR (85% APMHR): 150 bpm % of APMHR: 75 Recovery HR: 58 bpm BP Resting BP: 124.0/73.0 mmHg Max BP: 150.0/52.0 mmHg Recovery BP: 131.0/66.0 mmHg ECG Resting ECG: SB Stress EC.[address] depression Clinical Highest Stage Achieved: II Stress ECG Conclusion Max HR: 132 % of PM: 75 Max BP: 150/52 METs: 7.1 Test stopped due to: Fatigue Symptoms: Palpitations Arrhythmias/Ectopy: PVC ST-T Changes: 0.[address] depression Conclusion: Nondiagnostic exercise stress test due to inability to achieve target HR. No evidence of EKG changes at the level of HR achieved. Alternative testing with pharmacologic nuclear stress imaging may be suggested for ischemic evaluation. Electronically signed by : Robyn Tilley MD 10/11/2024 02:10:22
--- NOTE | 2024-10-10 08:07 | CA_ITS ---
APPROVED REPORT EXAM: Comprehensive 2D, Doppler, and color-flow [facility] Medical Specialist: Becky Gomez, RCS, RVS Ht: 5 ft 1 in Wt: 224lbs BSA: 1.98 BP: 102/41 mmHg Rhythm: Bradycardia Indications: Chest pain, Abn EKG, Family H/o WPW, Palpitations, Smoker 2D Dimensions IVSd 0.95 cm F: 0.6-1.0 LVEF (Visual) 58.70 % PWd 0.76 cm F: 0.6 - 1.0 LA Volume 42.90 mL LVDd 4.62 cm F: 3.9 - 5.3 LA Volume Index [id number] mL/m2 (M/F) 16-34 LVDs 3.19 cm F: 2.2 - 3.5 Left Atrium 2.58 cm F: 2.7 - 3.8 M-Mode Dimensions RVDd 2.44 cm (0.9-2.6) LA Diam 3.48 cm (1.9-4.0) LVDd 4.33 cm (3.5-5.7) LVDs 3.17 cm (3.5-5.7) IVSd 1.05 cm (0.6-1.1) PWd 0.84 cm (0.6-1.1) EF (Teich) 52.60% EPSs 0.29 cm FS 26.80% EDV (Teich) 84.40 mL TAPSE 2.71 (<1.7) ESV (Teich) 40.00 mL LV Diastology E Decel Time 263 (160-240 msec) E/A Ratio 1.37 MED A' 7.60 cm/s LAT A' 8.00 cm/s Aortic Valve CHANDANA Index 0.86 cm2/m2 AoV Peak Keegan. 145.0 (50-130 cm/s) AO Peak GR. 8.40 mmHg AO Mean GR. 3.70 (<5 mmHg) AO VTI 33.0 (18-25 cm) CHANDANA (VTI) 1.74 (2.5-4.5 cm2) Mitral Valve MV A Velocity 58.0 (40-130 cm/s) E/A Ratio 1.37 Tricuspid Valve TR P. Velocity 219.00 cm/s Left Ventricle The left ventricle is normal size. The left ventricular systolic function is normal. The left ventricular ejection fraction is within the normal range. There is normal left ventricular wall thickness. There is normal LV segmental wall motion. The left ventricular diastolic function is normal. LVEF is 55%. Right Ventricle Right ventricle is mildly dilated. The right ventricular systolic function is normal. Atria The left atrium size is normal. The right atrium size is normal. There is no Doppler evidence of interatrial shunt. Aortic Valve The aortic valve opens well. There is no aortic valvular stenosis. No aortic regurgitation is present. Mitral Valve The mitral valve is normal in structure. No evidence of mitral valve stenosis. Trace mitral regurgitation. Tricuspid Valve Tricuspid valve is grossly normal in structure and function. Trace tricuspid regurgitation. There is insufficient TR jet to estimate RVSP. Pulmonic Valve The pulmonary valve is normal in structure. Trace pulmonic regurgitation. Great Vessels The aortic root is normal in size. IVC is normal in size and collapses >50% with inspiration. Pericardium There is no pericardial effusion. Other Information Study Quality: Adequate Conclusion Normal biventricular systolic function. Mild RV dilation. No significant valvular stenosis or regurgitation. Electronically signed by : Robyn Tilley MD 10/15/2024 23:49:07
== END 2024-10-10 23:59 | disposition home or self-care (01) ==
LOC: RT 08:04
PROVIDERS: PCP Nurse Practitioner Family; Visit Provider Internal Medicine
DX: I51.7 Cardiomegaly (principal); R07.89 Other chest pain; I45.6 Pre-excitation syndrome; R42 Dizziness and giddiness; R40.0 Somnolence; R06.09 Other forms of dyspnea; R94.31 Abnormal electrocardiogram [ECG] [EKG]; R00.1 Bradycardia, unspecified; E66.9 Obesity, unspecified; Z68.37 Body mass index [BMI] 37.0-37.9, adult
CPT/HCPCS: 93017; 93018; 93306

== ENCOUNTER 2024-10-11 16:22 | Outpatient (CLI) | payer MEDICAID, SELFPAY ==
[2024-10-11 19:56] LABS: Alanine Aminotransferase 30 U/L (12-78); Albumin Level 5.1 g/dl (3.5-5.0); Albumin/Globulin Ratio 2.3 (1.1-1.8); Alkaline Phosphatase 58 U/L (38-126); Anion Gap 16.1 mEq/L (5-15); Aspartate Amino Transferase 26 U/L (14-36); Bilirubin,Total 0.4 mg/dl (0.2-1.3); Blood Urea Nitrogen 12 mg/dl (7-17); Calcium 9.9 mg/dl (8.4-10.2); Carbon Dioxide 26 mmol/L (22.0-30.0); Chloride 99 mmol/L (98-107); Estimated Glomerular Filt Rate 60 ml/min (>60); GFR (African American) 73 ML/MIN (>60); Globulin 2.2 g/dL (1.3-3.2); Glucose 87 mg/dl (74-100); Potassium 4.1 mmoL/L (3.5-5.1); Sodium 137 mmol/L (136-145); Total Protein,Serum 7.3 g/dl (6.3-8.2)
[2024-10-11 20:20] LABS: 25-OH Vitamin D, Total 26.6 ng/mL (30-100)
[2024-10-11 20:27] LABS: Free Thyroxine Index 2.1 ug/dL (5.93-13.13); T4 (Thyroxine) 6.7 ug/dl (5.53-11.0); Triiodothryronine (T3) Uptake 31 % (23.5-40.5)
[2024-10-11 20:40] LABS: Thyroid Stimulating Hormone 8.33 uIU/mL (0.465-4.68)
[2024-10-11 21:10] LABS: HIV Combo NEGATIVE (Negative)
[2024-10-11 21:16] LABS: Hepatitis C Ab Qual. W/ RFX NEGATIVE (Negative)
== END 2024-10-11 23:59 | disposition home or self-care (01) ==
LOC: LAB.DROPOF 10-12 12:27
PROVIDERS: PCP Nurse Practitioner Family; Visit Provider Nurse Practitioner Family
DX: R07.9 Chest pain, unspecified (principal); R42 Dizziness and giddiness; R79.89 Other specified abnormal findings of blood chemistry; E55.9 Vitamin D deficiency, unspecified; R94.6 Abnormal results of thyroid function studies
CPT/HCPCS: 80053; 82306; 84436; 84443; 84479; 86803; 87389